=== PATIENT | female | born 1945 | race Caucasian/White ===

== ENCOUNTER 2024-07-14 14:24 | Outpatient (REF) | payer OTHER, SELFPAY ==
--- OUTSIDE RECORDS SUMMARY | 2024-07-14 17:42 | XMS_ITS | Continuity of Care Document ---
Author Organization [place] - [facility], [facility] Address [address] [place] [address] Assessment No assessment recorded. Plan of Treatment Reminders Order Date Submit Date Provider Last Modified By Organization Details Last Modified Time Details Appointments NEW PROBLEM 15 2024 01:30P SUSY RANDHAWA Not available Not available Not available Lab hemoglobi n A1c, QN, blood 2024 025 [facility], [address] [place] [address], [id number], 07/14/2024 14:08:24 urinalysi s complete, reflex culture 2024 025 [facility], [address] [place] [address], [id number], 07/14/2024 14:08:24 vitamin D, 25-hydrox y, total, serum 2024 025 [facility], [address] [place] [address], [id number], 07/14/2024 14:07:08 vitamin B12 + folate, serum or blood 2024 025 [facility], [address] [place] [address], [id number], 07/14/2024 14:07:08 iron + TIBC + ferritin, serum 2024 025 [facility], [address] [place] [address], [id number], 07/14/2024 14:07:08 magnesium , serum or plasma 2024 025 [facility], [address] [place] [address], [id number], 07/14/2024 14:07:08 CMP, serum or plasma 2024 025 [facility], [address] [place] [address], [id number], 07/14/2024 14:07:08 CBC w/ auto diff 2024 025 [facility], [address] [place] [address], [id number], 07/14/2024 14:07:08 TSH + free T4, serum 2024 025 [facility], [address] [place] [address], [id number], 07/14/2024 14:07:08 Referral ophthalmo logist referral 2024 025 paola Pittman MD, [address] [place] [address], [id number], 07/14/2024 14:15:30 Procedures None recorded. Surgeries None recorded. Imaging None recorded. Medication Orders None recorded. Patient TargetsNo targets recorded. Patient InstructionsNo instructions recorded. 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 of visual image needs new eye doctor for routine exam Referring Physician: Radha Chatterjee, Internal Medicine, Encounter Date: 07/14/2024 Problems Name Problem SNOMED Code Status Onset Date Resolution Date Notes Provider Name and Address Organization Details Recorded Time Peptic ulcer with hemorrhag e 80536483 Active 2021 Not Available [facility] 3 16:17:23 Pulmonary embolism 76868319 Active 2021 Not Available [facility] 3 16:17:23 Deep venous thrombosi s 986203635 Active 2021 Not Available [facility] 3 16:17:23 Vitamin D deficienc y 47205950 Active 2021 Not Available [facility] 3 16:17:23 Mood disorder 06956876 Active 2021 Not Available [facility] 3 16:17:23 Hyperlipi demia 33910853 Active 2021 Not Available [facility] 3 16:17:23 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 07219057 Active 2021 Not Available [facility] 3 16:17:24 Hiatal hernia 40369278 Active 2021 Not Available [facility] 3 16:17:24 Esophagea l dysphagia 35924747 Active 2021 Not Available [facility] 3 16:17:23 Cervical radiculop athy 00404684 Active 2021 Not Available [facility] 3 16:17:23 Lumbar spondylol isthesis 169117887603 102 Active 2021 Not Available [facility] 3 16:17:23 Acquired spondylol isthesis of cervical vertebra 713968026192 106 Active 2021 Not Available [facility] 3 16:17:23 Hypothyro idism 36573433 Active 2021 Not Available [facility] 3 16:17:23 Squamous cell carcinoma 404708225 Active 2021 Not Available [facility] 3 16:17:23 Fatigue 30814709 Active 2021 Not Available [facility] 3 16:17:24 Blood coagulati on disorder 85919247 Active 2022 Not Available [facility] 3 16:17:23 Female hirsutism 74026574 Active 2022 Not Available [facility] 3 16:17:24 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 4 14:03:37 Dysuria 15396356 Active 2023 SUSY ALCANTARA [address] [place], [address], [facility] 4 14:03:46 Bilateral shoulder joint pain 284192711991 20552 Active 2023 SUSY ALCANTARA [address] [place] [address], [phone], [facility] 4 11:53:35 Iron deficienc y anemia 98926955 Active 2023 SUSY ALCANTARA [address] [place], [address], [facility] 4 11:59:42 Actinic keratosis 392953017 Active 2023 SUSY ALCANTARA [address] [place] [address], [address], [facility] 4 12:01:42 Bilateral hearing loss 25785522 Active 2023 SUSY ALCANTARA [address] [place] [address], [address], [facility] 4 10:43:51 Pain of left shoulder joint 377265298781 80614 Active 2023 SUSY ALCANTARA [address] [place], [address], [facility] 4 08:56:38 Lumbar radiculop athy 239907926 Active 2023 SUSY ALCANTARA [address] [place] [address], [address], [facility] 4 08:57:16 Increased frequency of urination 514202531 Active 2024 SUSY ALCANTARA [address] [place] [address], [address], [facility] 5 14:06:26 Edema of lower extremity 405557213 Active 2024 SUSY ALCANTARA [address] [place] [address], [phone], [facility] 5 14:10:57 Pain in left foot 003940236097 107 Active 2024 SUSY ALCANTARA [address] [place] [address], , [facility] 5 14:11:32 Blurring of visual image 666435449 Active 2024 SUSY ALCANTARA [address] [place] [address], [address], [facility] 5 14:14:36 Factor V Leiden mutation 252533097 Active 2024 SUSY ALCANTARA [address] [place] [address], [address], [facility] 5 14:18:52 Notes:Some problems listed i n Document: #[id number] could not be added to this patient's chart. Please review this document and add these problems to the patient's chart manually as needed. Problem Notes None recorded. Medical Equipment None Reported. Allergies Allergen ID Allergen Name Allergen Category Reaction Reaction Severity Criticality Documentation Date Start Date Code Code System Note Provider Name and Address Organization Details Recorded Time 3989 Product containin g 3-hydroxy -3-methyl glutaryl- coenzyme A reductase inhibitor (product) medicatio n Not available Not available Not available 03/01/2022 71244 009 SNOMED RADHA CHATTERJEE, PA [address] [place], [place], [address], [facility] 2 10:32:11 6204 hornet venom environme nt Not available Not available Not available 03/01/2022 57296 UNK RADHA CHATTERJEE, PA [address] [place], [place], [address], [facility] 2 10:32:15 6205 honey bee venom medicatio n Not available Not available Not available 03/01/2022 33814 7 RxNorm RADHA CHATTERJEE, SUSY [address] [place], [place], [address], [facility] 2 10:32:24 6206 Imitrex medicatio n Not available Not available Not available 03/01/2022 14376 3 RxNorm RADHA CHATTEJREE, SUSY [address] [place], [place], [address], [facility] 2 10:32:30 7249 escitalop nanette Not available Not available Not available Not available 12/05/2022 01989 8 RxNorm Tali ruiz [facility] 3 10:21:52 7250 fluoxetin e medicatio n Not available Not available Not available 12/05/2022 4493 RxNorm Tali ruiz [facility] 3 10:22:07 Medications Name Sig Start Date Stop Date Status Note LastModified by Organization Details LastModified Time fluoxetin e 40 mg capsule TAKE 1 CAPSULE BY MOUTH EVERY DAY 03/01 completed Not Available Not Available Not Available amoxicill in 500 mg capsule TAKE 2 CAPSULES BY MOUTH IMMEDIAT JUANITA THEN TAKE 1 CAPSULE EVERY 8 HOURS UNTIL FINISHED 04/06 completed Not Available Not Available Not Available clindamyc in HCl 300 mg capsule TAKE 1 CAPSULE BY MOUTH TWICE A DAY 08/06 completed Not Available Not Available Not Available cefpodoxi me 100 mg tablet TAKE 1 TABLET BY MOUTH TWICE A DAY 08/06 completed Not Available Not Available Not Available fluoxetin e 10 mg tablet Take 0.5 tablets every day by oral route. 12/05 completed coming off the medicati on (will do half tab for two weeks)th en half a tab every other day for two weeks Not Available Not Available Not Available acetamino phen 300 mg-codein e 30 mg tablet TAKE 1 TO 2 TABLETS BY MOUTH EVERY 4 HOURS NEEDED FOR PAIN active Not Available Not Available No t Available sulfameth oxazole 800 mg-trimet hoprim 160 mg tablet Take 1 tablet every 12 hours by oral route as directed for 5 days. 08/06 completed Not Available Not Available Not Available tramadol 50 mg tablet TAKE 1 TABLET BY MOUTH THREE TIMES A DAY NEEDED FOR 30 DAYS active Not Available Not Available No t Available levothyro xine 75 mcg tablet TAKE 1 TABLET BY MOUTH EVERY DAY active Not Available Not Available No t Available Vitamin D3 10 mcg (400 unit) tablet Take 1 tablet every day by oral route. 04/06 completed Not Available Not Available Not Available warfarin 2 mg tablet TAKE 1-2 TABLETS (2-4MG) BY MOUTH DAILY NEEDS APPT FOR FURTHER REFILLS 2023 active Not Available Not Available Not Avai lable omeprazol e 20 mg capsule,d elayed release TAKE 1 CAPSULE BY MOUTH EVERY DAY active Not Available Not Available No t Available gabapenti n 100 mg capsule TAKE 1 CAPSULE BY MOUTH 3 TIMES A DAY NEEDED. active Not Available Not Available No t Available epinephri ne 0.3 mg/0.3 mL injection , auto-inje ctor PLEASE SEE ATTACHED FOR DETAILED DIRECTIO NS active Not Available Not Available No t Available Vitamin C 250 mg tablet Take 2 tablets every day by oral route. active Not Available Not Available No t Available morphine 15 mg immediate release tablet TAKE 1 TABLET (15 MG TOTAL) BY MOUTH EVERY 6 (SIX) HOURS NEEDED FOR PAIN *E* 06/05 completed Not Available Not Available Not Available ondansetr on 4 mg disintegr ating tablet TAKE 1 TABLET BY MOUTH EVERY 8 HOURS NEEDED FOR NAUSEA active Not Available Not Available No t Available ezetimibe 10 mg tablet TAKE 1 TABLET BY MOUTH EVERY DAY active Not Available Not Available No t Available escitalop nanette 5 mg tablet TAKE 1 TABLET BY MOUTH EVERY DAY active Not Available Not Available No t Available duloxetin e 20 mg capsule,d elayed release TAKE 1 CAPSULE BY MOUTH EVERY DAY NEEDS APPT FOR FURTHER REFILLS CALL OFFICE active Not Available Not Available No t Available duloxetin e 30 mg capsule,d elayed release TAKE 1 CAPSULE BY MOUTH EVERY DAY 10/31 completed Not Available Not Available Not Available chlorhexi dine gluconate 0.12 % mouthwash RINSE WITH 15 ML TWICE DAILY AFTER BREAKFAS T/BEFORE BEDTIME FOLLOWIN G BRUSHING AND FLOSSING AND SPIT active Not Available Not Available No t Available Feosol 325 mg (65 mg iron) tablet Take 1 tablet every other day by oral route. active Not Available Not Available No t Available Calcium 600 take 1 tablet every other day active Not Available Not Available No t Available Vitals Date Recorded Body weight Heart rate Oxygen saturation Oxygen saturation in Arterial blood by Pulse oximetry Systolic blood pressure Diastolic blood pressure Provider Name and Address Organization Details Last Updated DateTime 5 38015.1 1 g 95 /min 95 % 95 % 112 mm[Hg] 82 mm[Hg] Bertha Goldberg [facility] 5 13:48:48 Social History Question Answer Notes LastModified by Organizat ion Details LastModified Time Tobacco Smoking Status Former Smoker SUSY ALCANTARA [address] [place] [address], [address], [facility] 03/01/2022 10:33:35 What Was The Date Of Your Most Recent Tobacco Screening? 08/07/2023 [email or web address] Information not available 08/07/2023 Do You Or Have You Ever Used Any Other Forms Of Tobacco Or Nicotine? No [email or web address] Information not available 03/01/2022 Sex: Unknown Functional Status None recorded. Mental Status None recorded. Family History Nothing Reported. Medical History No medical history recorded. Gynecological HistoryNo gynecological history recorded. Obstetrics History GPAL:G 0 P 0 0 0 0 Immunizations Vaccine Type Date Status Note Provider Nam e and Address Organization Details Recorded Time influenza, unspecified formulation 2 completed SUSY ALCANTARA [address] [place], [address], [facility] 03/01/2022 10:33:24 influenza, unspecified formulation 3 [facility] 02/17/2023 08:24:36 influenza, unspecified formulation 4 completed Bertha ruiz [facility] 01/03/2024 09:57:51 Past Encounters Encounter ID Performer Location Encounter Start Date Encounter Closed Date Diagnosis/Indication Diagnosis SNOMED-CT Code Diagnosis ICD10 Code Diagnosis Note [id number] SUSY ALCANTARA [facility] [address],[place] [address] 07/14/2024 13:36:55 07/14/2024 14:19:39 Fatigue 48838677 R53.83 recommende d additional lab workcould be related to her depression which was exacerbate d due to her dying Increased frequency of urination 779911147 R35.0 will set up with A1c and urine check Vitamin D deficiency 347 57474 E55.9 needs recheck of her levels Edema of l ower extremity 489281828 R60.0 continue to elevate her feet Pain in left foot 720646 4763 87686 M79.672 start of topical Blurring o f visual image 424928465 H53.8 will set up with new eye doctor Squamous c ell carcinoma 638454668 C80.1 has fu with derm Chronic de ep venous thrombosis of lower extremity 5722264530 40399 I82.503 stable Factor V L eiden mutation 809234686 D68.51 Health Concerns Section Related Observation LastModified by Organization Detai ls LastModified Time None Recorded Concern Status LastModified by Organization Details LastModified Time None Recorded Payers Encounter Date Sequence Insurance Name Policy Number Policy Hwang Covered Member ID Hwang Member ID Guarantor Name 07/14/2024 1 [facility] - MEDICARE PREFERRED (MEDICARE REPLACEMENT HMO) PHUONG Ruffin [id number] 1 Edwin Noa Laly Notes Date Note Type Note Provider Name a nd Address Organization Details Recorded Time 5 text/html c/o urinary issues LE edema: the patient is noticing more swelling in her feetthe patient reports she notices it she gets warm and feels like the feet start to hurt and burnpatient probably has arthritis in her foot, pain with manipulating the foot joint suggestive capzasin, voltaren gel urinary issues: the patient is going to the bathroom more frequentlythe patient has stress incontinence, notices when she sneezesotherwise doesn't notice any other issues with incontinenceno other symptoms the patient has shooting pains from her back into her front, notes she was vacuuming and bending over for a prolonged period of time, probably strained the area since it has since improved skin cancer, lesion of face, has derm fu already will fu with patient after lab work SUSY ALCANTARA [address] [place] [address], [place], [address], [facility] 07/14/2024 14:19:38 OBGyn Episode No OBEpisode recorded.
--- OUTSIDE RECORDS SUMMARY | 2024-07-14 17:42 | XMS_ITS | Data Portability ---
Author Organization [facility], [facility] Address [address] [place] [address] Care Team Providers Care Public Relations Player Name Role Phone DANITA MIRAMONTES Primary Care Provider Unavailabl e Assessment No assessment recorded. Plan of Treatment Reminders Order Date Submit Date Provider Last Modified By Organization Details Last Modified Time Details Appointments None recorded. Lab thyroid stimulatin g hormone (TSH) 2012 013 [facility] (Outpatient), [address] [place], [address], 4 14:05:46 Referral None recorded. Procedures colonoscop y procedure (PROC) - REASON FOR REQUESTING COLONOSCOP Y (choose one):Scree michelle for Colon Cancer
Personal History of Colon Polyps N
Family History of Colon Cancer N

MEDICAL INFORMATIO N1. Any of following conditions ? None 2. A condition requiring prophylaxi s? None
3. Taking medication s? Yes (if yes, provide printed med list)
4. Prior colonoscop y? Yes (if yes, what date?)
5. Any past surgery?<b r />6. Any allergies?
7. Has patient seen GI doctors before? No Yes ( if yes, what DrJalil?)
2013 014 [facility], [address] [place], [address], 4 07:41:19 Surgeries None recorded. Imaging None recorded. Medication Orders oxycodone- acetaminop hen 5 mg-325 mg tablet 2013 014 [id number], [address] [place], [address], 4 11:56:02 amitriptyl ine 25 mg tablet 2013 014 [facility], [address] [place], [address], 4 11:56:02 lorazepam 0.5 mg tablet 2013 014 [facility]per[facility], [address] [place], [address], 4 11:45:08 escitalopr am 20 mg tablet 2013 014 [facility], [address] [place], [address], 4 09:40:32 Patient TargetsNo targets recorded. Patient Instructions Encounter Date Encounter Id Patient Instructions Last Modified By Organization Details Last Modified Time 03/17/2013 [id number] Call? ? ? at [phone] to make an appointment. melissa Not available 03/17/2013 10:18:05 04/08/2013 [id number] START SEEING THE THERAPIST THAT YOU LIKED. LOOK INTO TRYING NEW ACTIVITIES LIKE [employer], A BOOK CLUB, ETC. START GOING OUT TO SEE FRIENDS. INCREASE YOUR ESCITALOPRAM TO 20MG A DAY. GO FOR THE THYROID LAB DRAW TODAY. melissa Not available 04/08/2013 11:51:14 06/16/2013 [id number] advance directives: care instructions tsuddaby Not available 06/16/2013 11:58:54 preventing falls : care instructions tsuddaby Not available 06/16/2013 11:58:54 hearing loss: care instructions tsuddaby Not available 06/16/2013 11:58:54 well visit, over 65: care instructions tsuddaby Not available 06/16/2013 11:58:54 My Health To Do List As we discussed and agreed upon at your visit please work on the following: STOP CALCIUM SUPPLEMENTS AND GET 2-3 SERVINGS OF DAIRY A DAY. TAKE VITAMIN D 1000 IU DAILY. CALL YOUR INSURANCE AND ASK IF YOU CAN GET ADACEL AND ZOSTAVAX DIRECTLY FROM US, OR IF YOU HAVE TO GO THROUGH THE PHARMACY. [email or web address] Not available 06/16/2013 11:44:41 Reason for Referral None Reported. Results Created Date Observation Date Name Description Value Unit Range Abnormal Flag Note LastModifiedBy Organization Detail LastModifiedTime 11/29/19 13 11/28/2012 lipid panel cholesterol 296 mg/dL 0-240 high Not Available [facility] (Outpatient) [address] [place], [address], 11/28/2012 13:09:56 11/29/19 13 11/28/2012 lipid panel triglyceride s 72 mg/dL 30-160 Not Available [facility] (Outpatient) [address] [place] [address], [address], 11/28/2012 13:09:56 11/29/19 13 11/28/2012 lipid panel HDL cholesterol 99 mg/dL inter preta tion: risk level femal es decre ased >55mg /dL avera ge 50-55 mg/dL incre ased <50 mg/dL Not Available [facility] (Outpatient) [address] [place], [address], 11/28/2012 13:09:56 11/29/19 13 11/28/2012 lipid panel LDL cholesterol 183 mg/dL inter preta tion: fina able level : <130 borde rline high: 130 - 159 high level : >160 Not Available [facility] (Outpatient) [address] [place], [address], 11/28/2012 13:09:56 11/29/19 13 11/28/2012 lipid panel chol/HDL risk fact 2.99 3.27-4 .44 low Not Available [facility] (Outpatient) [address] [place], [address], 11/28/2012 13:09:56 11/29/19 13 11/28/2012 hepat ic funct ion panel , serum alkaline phosphatase 51 U/L 39-117 Not Available [facility] (Outpatient) [address] [place], [address], 11/28/2012 13:09:57 11/29/19 13 11/28/2012 hepat ic funct ion panel , serum total bilirubin 0.4 mg/dL 0.0-1. 5 Not Available [facility] (Outpatient) [address] [place], [address], 11/28/2012 13:09:57 11/29/19 13 11/28/2012 hepat ic funct ion panel , serum bilirubin direct <0.2 mg/dL 0.0-0. 3 Not Available [facility] (Outpatient) [address] [place], [address], 11/28/2012 13:09:57 11/29/19 13 11/28/2012 hepat ic funct ion panel , serum bilirubin indirect see below mg/dL not able to calcu late. Not Available [facility] (Outpatient) [address] [place], [address], 11/28/2012 13:09:57 11/29/19 13 11/28/2012 hepat ic funct ion panel , serum AST (SGOT) 28 U/L 0-37 Not Available [facility] (Outpatient) [address] [place], [address], 11/28/2012 13:09:57 11/29/19 13 11/28/2012 hepat ic funct ion panel , serum ALT (SGPT) 21 U/L 0-40 Not Available [facility] (Outpatient) [address] [place], [address], 11/28/2012 13:09:57 11/29/19 13 11/28/2012 hepat ic funct ion panel , serum total protein 6.5 g/dL 6.5-8. 0 Not Available [facility] (Outpatient) [address] [place], [address], 11/28/2012 13:09:57 11/29/19 13 11/28/2012 hepat ic funct ion panel , serum albumin 4.4 g/dL 3.9-4. 8 Not Available [facility] (Outpatient) [address] [place], [address], 11/28/2012 13:09:57 11/29/19 13 11/28/2012 hepat ic funct ion panel , serum globulin 2.1 gm/dL 1.0-4. 8 Not Available [facility] (Outpatient) [address] [place], [address], 11/28/2012 13:09:57 11/29/19 13 11/28/2012 hepat ic funct ion panel , serum A/G ratio 2.1 gm/dL 1.0-4. 8 Not Available [facility] (Outpatient) [address] [place], [address], 11/28/2012 13:09:57 11/29/19 13 11/28/2012 gluco se glucose 106 mg/dL 70-99 high Not Available [facility] (Outpatient) [address] [place] [address], [address], 11/28/2012 13:09:58 11/29/19 13 11/28/2012 vitam in B12 vitamin B12 1050 pg/mL 243-89 4 high Not Available [facility] (Outpatient) [address] [place], [address], 11/28/2012 13:22:42 11/29/19 13 11/28/2012 folat e folate >20.0 NG/mL 4.2-19 .9 high Not Available [facility] (Outpatient) [address] [place] [address], [address], 11/28/2012 13:22:42 11/29/19 13 12/03/2012 methy lmalo celia acid, serum methylmaloni c acid, qn, 0.17 nmol/ mL <=0.40 test perfo rmed by: [facility] [place] [facility] [address] [place] [address] labor atory direc tor: deonna malin III, M.D. Not Available [facility] (Outpatient) [address] [place] [address], [address], 12/03/2012 11:34:09 11/29/19 13 12/03/2012 homoc ystei ne homocysteine , total 9 mcmol /L refer ence range : <=13 (fast ing) test perfo rmed by: [facility] [place] [facility] [address], [place] [address] labor atory direc tor: deonna malin III, M.D. Not Available [facility] (Outpatient) [address] [place] [address], [address], 12/03/2012 11:34:10 11/29/19 13 12/03/2012 eryth ropoi etin erythropoiet in, S 11.9 mIU/m L refer ence range : 2.6 - 18.5 test perfo rmed by: [facility] [place] [address] [facility], [place] [address] labor atory dire tor: ajit akhtar, pH.D. Not Available [facility] (Outpatient) [address] [place] [address], [address], 12/03/2012 11:34:12 04/08/19 14 04/08/2013 thyro id stimu latin g hormo ne (TSH) TSH 3.550 mU/L 0.270- 4.20 Not Available [facility] (Outpatient) [address] [place] [address], [address], 04/08/2013 14:05:45 11/28/19 13 11/14/2012 imagi ng/di agnos tic resul t No observ ation record ed. BARCODE Not Available 2012 18:12:49 Result Notes None recorded. Problems Name Problem SNOMED Code Status Onset Date Resolution Date Notes Provider Name and Address Organization Details Recorded Time Mixed hyperlipidem ia 616723425 Active Keshia Trungkentrell null, [facility] 4 09:46:13 Hypothyroidi sm 49574150 Active 05/04/13 No S/O per YP, managed by Dr. 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 Procedures Surgical History Date Name Laterality Status Provider Name and Address Organization Details Recorded Time 06/17/19 14 Medicare Wellness Visit completed Danita Miramontes MD [address] [place], [address], [facility] 06/16/2013 11:31:48 07/30/19 13 Treatment and Advice completed Ne Rowe Ms, PT [address] [place], [address], [facility] 07/29/2012 11:48:33 07/23/19 13 Treatment and Advice completed Ne Rowe Ms, PT [address] [place], [address], [facility] 07/22/2012 09:32:05 07/16/19 13 Treatment and Advice completed Ne Rowe Ms, PT [address] [place], [address], [facility] 07/15/2012 16:21:43 04/09/19 13 Medicare Wellness Visit completed Sunday Gupta LPN [facility] 04/09/2012 08:34:54 07/04/19 12 Smoking cessation counseling completed Latasha Baca CMA [facility] 07/04/2011 13:26:38 04/20/19 12 Medicare Wellness Visit completed Susan Kaminski MA [facility] 04/20/2011 10:09:43 Appendectomy completed Danita Miramontes MD [address] [place] [address], [address], [facility] 04/09/2012 09:24:07 Imaging Results Imaging Date Name Status LastModified by Organiz ation Details LastModified Time 11/14/2012 imaging/diag nostic result completed BARCODE Information not available 11/27/2012 18:12:49 Procedure Notes None recorded. Medical Equipment None Reported. Allergies Allergen ID Allergen Name Allergen Category Reaction Reaction Severity Criticality Documentation Date Start Date Code Code System Note Provider Name and Address Organization Details Recorded Time 304316 wasp venoms environme nt Not available Not available Not available 09/01/2013 16381 RxNorm Catherine De La Torre LPN [facility], [facility] 4 12:58:33 70496 Lipitor medicatio n Not available Not available Not available 04/20/2011 91016 5 RxNorm muscl e pain Danita Miramontes MD [address] [place] [address], [address], [facility] 2 10:54:15 Medications Name Sig Start Date Stop Date Status Note LastModified by Organization Details LastModified Time levothyro xine 137 mcg tablet Take 1 tablet every day by oral route. active Not Available Not Available No t Available amitripty line 75 mg tablet TAKE ONE TABLET(S ) EVERY DAY active Not Available Not Available No t Available ofloxacin 0.3 % eye drops active Not Available Not Available Not Available meloxicam 15 mg tablet active Not Available Not Available Not Available Niaspan 500 mg tablet,ex tended release Take 3 tablets every day by oral route. 2012 active Not Available Not Available Not Avai lable levothyro xine 100 mcg tablet TAKE ONE TABLET(S ) EVERY DAY active Not Available Not Available No t Available oxycodone -acetamin ophen 5 mg-325 mg tablet Take 1 TABLET EVERY 6 HOURS by oral route prn severe headache active Not Available Not Available No t Available levothyro xine 88 mcg tablet active Not Available Not Available Not Available amitripty line 25 mg tablet Take 1 tablet every day by oral route at bedtime. active Not Available Not Available No t Available prednisol one acetate 1 % eye drops,saumya pension active Not Available Not Available Not Available lorazepam 0.5 mg tablet 1 tab po 3x/d prn panic, max 3 doses a day active Not Available Not Available No t Available levothyro xine 125 mcg tablet Take 1 tablet every day by oral route. active Not Available Not Available No t Available levothyro xine 150 mcg tablet TAKE ONE TABLET(S ) EVERY DAY active decrease d Not Available Not Available Not Available niacin 500 mg tablet Take 2 tablets every day by oral route. active Not Available Not Available No t Available hydrocodo ne 5 mg-acetam inophen 500 mg tablet Take by oral route for 5 days. 09/14 completed Not Available Not Available Not Available escitalop nanette 10 mg tablet TAKE ONE TABLET(S ) EVERY DAY active Not Available Not Available No t Available escitalop nanette 20 mg tablet TAKE ONE TABLET(S ) BY MOUTH EVERY DAY active Not Available Not Available No t Available Naprosyn 2 tabs 220mg active Not Available Not Available No t Available Aspir-81 2 tabs po hs active Not Available Not Available No t Available levothyro xine 125 mcg capsule Take 1 capsule every day by oral route for 30 days. active Not Available Not Available No t Available EpiPen 2-Mateo 0.3 mg/0.3 mL injection , auto-inje ctor Take 1 auto by injectio n route. active Not Available Not Available No t Available Ilevro 0.3 % eye drops,saumya pension active Not Available Not Available Not Available Vitals Date Recorded Body weight Heart rate Body mass index (BMI) Body height Systolic blood pressure Diastolic blood pressure Provider Name and Address Organization Details Last Updated DateTime 3 19286.7 93750 g 80 /min 27 kg/m2 162.56 cm 122 mm[Hg] 82 mm[Hg] Sharri Willis RN [facility] 3 09:58:26 Date Recorded Body weight Body height Body mass index (BMI) Heart rate Systolic blood pressure Diastolic blood pressure Provider Name and Address Organization Details Last Updated DateTime 4 10013.8 25769 g 162.56 cm 27.7 kg/m2 78 /min 112 mm[Hg] 64 mm[Hg] Sharri Willis RN [facility] 4 09:15:30 Date Recorded Body height Body mass index (BMI) Body weight Heart rate Systolic blood pressure Diastolic blood pressure Provider Name and Address Organization Details Last Updated DateTime 4 162.56 cm 28.5 kg/m2 36508.6 56085 g 80 /min 140 mm[Hg] 82 mm[Hg] Sharri Willis RN [facility] 4 11:02:53 Date Recorded Systolic blood pressure Diastolic blood pressure Provider Name and Address Organization Details Last Updated DateTime 06/16/2013 138 mm[Hg] 76 mm[Hg] Danita Miramontes MD [address] [place] [address], [address], [facility] 06/18/2013 15:54:44 Date Recorded Body weight Body mass index (BMI) Body height Systolic blood pressure Diastolic blood pressure Provider Name and Address Organization Details Last Updated DateTime 11/07/2013 55279.81 735 g 26.6 kg/m2 162.56 cm 130 mm[Hg] 70 mm[Hg] Darien Méndez [facility] 4 11:30:56 Social History Question Answer Notes LastModified by Organizat ion Details LastModified Time Tobacco Smoking Status Former Smoker age 20yo, quit 2011 Roque ruiz, [facility] 12/18/2011 10:10:46 Do You Have An Advance Directive? No Information not available 04/20/2011 What Is Your Level Of Alcohol Consumption? Occasional Information not available 06/16/2013 What Is Your Occupation? Retired From [email or web address] Information not available 04/20/2011 CSRP - Narcotics Yes 06/27/11-DC Lorazepam, Group 2 [email or web address] Information not available 06/27/2011 CSRP Contract Signed And Discussed Yes 05/29/11-DC Information not available 06/01/2011 Patient Has Health Care Proxy Signed And In Chart No Information not available 04/20/2011 Marital Status Information not available 04/20/2011 How Many Children Do You Have? 1 Dianna (she Is Learning Disabled And Lives W/ Them). Taylor Is A Step-daughte r Information not available 04/20/2011 Sex: Unknown Functional Status None recorded. Mental Status None recorded. Family History Relationship Description Onset Age of this Age Resolved Age Notes LastModified by Organization Details LastModified Time Mother Cerebrovascu lar accident 75 86 yperry Not available 11:21:12 Father Malignant neoplastic disease 68 uncert ain type asbest os exposu re yperry Not available 06/16/2013 11:21:12 Medical History Condition Response HEMATOLOGIC Y Hyperlipidemia Y Hypothyroid Y Anxiety Y MUSCULOSKELETAL Y Migraine Headaches Y Gynecological HistoryNo gynecological history recorded. Obstetrics History GPAL:G 0 P 0 0 0 0 Immunizations Vaccine Type Date Status Note Provider Nam e and Address Organization Details Recorded Time Influenza, split virus, trivalent, preservative 2 completed Not Available [facility] 04/18/2019 02:25:37 pneumococcal polysaccharide PPV23 2 completed Not Available [facility] 04/18/2019 02:14:55 Influenza, split virus, quadrivalent, PF 3 completed Not Available [facility] 04/18/2019 02:18:55 influenza, unspecified formulation 1 completed Catherine De La Torre LPN [facility], [facility] 05/29/2011 11:18:54 Influenza, split virus, trivalent, preservative 4 completed Sharri Willis RN [facility] 01/19/2014 14:42:42 Past Encounters Encounter ID Performer Location Encounter Start Date Encounter Closed Date Diagnosis/Indication Diagnosis SNOMED-CT Code Diagnosis ICD10 Code Diagnosis Note [id number] CHRISTOPHER VILLASEÑOR, OFFICE [address] [place] [id number] 04/20/2011 09:46:07 04/20/2011 11:04:34 [id number] CHARLEEN Cain, OFFICE [address] [place] [phone] 05/29/2011 10:46:45 05/29/2011 11:54:58 [id number] CHARLEEN Cain, OFFICE [address] [place] [address] 07/04/2011 13:17:36 07/04/2011 14:07:35 [id number] MD CHARLEEN Duarte Cain, OFFICE [address] [place] [phone] 08/29/2011 10:21:55 08/29/2011 11:25:58 [id number] , [facility], OFFICE [address] [place] [address] [place] [address] 10/26/2011 11:07:42 10/26/2011 12:44:20 [id number] Danita Miramontes MD , [facility], OFFICE [address] [place] [address] [place] [address] 12/18/2011 09:51:36 12/18/2011 11:29:44 [id number] Danita Miramontes MD , [facility], OFFICE [address] [place] [address] [place] [address] 01/04/2012 09:27:35 01/04/2012 10:38:44 [id number] Danita Miramontes MD , [facility], OFFICE [address] [place] [address] [place] [address] 04/09/2012 08:31:38 04/09/2012 09:36:13 [id number] Jacinto Guy MD , [facility], OFFICE [address] [place] [address], [place] [address] 05/20/2012 10:13:19 05/20/2012 12:46:11 [id number] Michelle Lock MD Radiology , [address] [address] 05/20/2012 11:12:50 05/21/2012 14:09:19 [id number] Michelle Lock MD Radiology , [address] [address] 05/20/2012 12:04:47 05/21/2012 08:21:39 [id number] Pat Stiles , [facility], OFFICE [address] [place] [address] 07/05/2012 11:20:07 07/07/2012 12:16:33 [id number] Josef Stephen MD Radiology , [address] [address] 07/05/2012 11:35:20 07/09/2012 10:58:40 [id number] Josef Stephen MD Radiology , [address] [address] 07/05/2012 12:38:44 07/09/2012 10:58:18 [id number] Dmitri Harkins , [facility], OFFICE [address] [place] [address], [place] [address] 07/08/2012 09:00:35 07/08/2012 11:35:30 [id number] Ne Rowe Ms, PT Physical Therapy, [address] [address] 07/09/2012 14:26:36 07/10/2012 07:54:07 [id number] Ne Rowe Ms, PT Physical Therapy, [address] [address] 07/15/2012 08:59:25 07/15/2012 16:40:18 [id number] Ne Rowe Ms, PT Physical Therapy, [address] [address] 07/22/2012 08:52:49 07/22/2012 09:40:09 [id number] Ne Rowe Ms, PT Physical Therapy, [address] [address] 07/29/2012 10:55:18 07/29/2012 12:23:57 [id number] Danita Miramontes MD , [facility], OFFICE [address] [place] [id number] 09/10/2012 09:50:19 09/10/2012 11:16:43 [id number] [facility], OFFICE [address] [place] [address] 11/14/2012 11:39:53 11/14/2012 13:00:08 Postural dizziness 070295041 advised to hydrate well, go for labs Dizziness and giddiness 268659091 advised to hydrate well, go for labs [id number] Rachael Paul , [facility], OFFICE [address] [place] [id number] 12/12/2012 10:27:17 12/12/2012 11:24:40 Backache 015105381 [id number] Benji Mcghee , [facility], OFFICE [address] [place] [id number] 12/26/2012 07:40:54 12/26/2012 15:07:49 Influenza vaccine needed 6105668711 [id number] [facility], OFFICE [address] [place] [address] 03/17/2013 09:41:22 03/17/2013 10:30:41 Hypothyroidism 26154319 current dose 88mcg since Oct 2012. recheck labs due to weight gain Hip pain 33465433 will s ee physiatris t Generalize d anxiety disorder 01675401 using benzo more recently due to stress but has been using prn in general. cont prn use and will monitor refill frequency. Hypnotic o r anxiolytic dependence, episodic 287864996 [id number] Danita Miramontes MD [facility], OFFICE [address] [place] [address] 04/08/2013 09:01:10 04/08/2013 09:54:03 Recurrent major depression 25351834 Hypothyroidism 56421160 see below Hip pain 69629045 still has not made appt w/ physiatris t. advised to do so [id number] Danita Miramontes MD [facility], OFFICE [address] [place] [address] 06/16/2013 10:33:51 06/16/2013 15:27:59 Adult health examination 425657599 see Risk Assessment and Lifestyle Change Counseling section above Counseling 606549018 Anxiety state 684860570 well controlled Bilateral cataracts [id number] CLEARED FOR SURGERY [id number] [facility], OFFICE [address] [place] [address] 11/07/2013 11:09:50 11/11/2013 11:06:37 Generalized headache 584808420 Patient presents to Urgent Care with generalize d, persistent RESTREPO for the last 4 days. Describes her RESTREPO as 9/10 pain. Abruptly stopped Amitriptyl ine 4 days ago (due to a concern of weight gain). Patient is under increased stress of taking care of an adult daughter with learning disability and elderly . RESTREPO likely due to tension as well as withdrawal of Amitriptyl ine. Advised to resume Amitriptyl ine at a lower dose of 25mg po qhs. Percocet as needed for RESTREPO. Advised to contact her PCP to further discuss about her ongoing psychosoci al issues. Advised to contact the clinic if no improvemen t of her RESTREPO. Spent 25 minutes of face-to-fa ce encounter. Greater than 50% was spent on counseling . Health Concerns Section Related Observation LastModified by Organization Detai ls LastModified Time None Recorded Concern Status LastModified by Organization Details LastModified Time None Recorded Advance Directives Directive N: Payers Encounter Date Sequence Insurance Name Policy Number Policy Hwang Covered Member ID Hwang Member ID Guarantor Name 12/26/2012 1 [facility] - MEDICARE PREFERRED (MEDICARE REPLACEMENT PFFS) PHUONG Ruffin [id number] Ediwn [place] Laly 03/17/2013 1 [facility] - MEDICARE PREFERRED (MEDICARE REPLACEMENT PFFS) PHUONG Pineda Ally [id number] Edwin [place] Laly 04/08/2013 1 [facility] - MEDICARE PREFERRED (MEDICARE REPLACEMENT PFFS) PHUONG Pineda Laly [id number] Edwin [place] Laly 06/16/2013 1 [facility] - MEDICARE PREFERRED (MEDICARE REPLACEMENT PFFS) PHUONG Pineda Laly [id number] Edwin [place] Laly 11/07/2013 1 [facility] - MEDICARE PREFERRED (MEDICARE REPLACEMENT PFFS) PHUONG Ruffin [id number] Edwin [place] Laly Notes Date Note Type Note Provider Name and Address Organization Details Recorded Time 03/17/2013 text/html pt reports significant R hip pain when she wakes up in the morning. Also starting in the L hip. This is chronic. She says PT was not very helpful. She would like to consider an injection. Using benzo prn anxiety. HAs been more stressed recenlty. Eating more lately and less acitve due to hip pain. Is gaining some weight Danita Miramontes MD [address] [place] [address], [id number], [facility] [place] 03[place]17/2013 15:01:52 04/08/2013 text/html more depressed a nd anxious than usual due to stress of having her learning disabled daughter not having a job and relying entirely on her and her other parent. She feels like her sx will not improve unless her daughter becomes motivated and tries harder to get a job and be independent. Her vision is worsening due to cataract. She gets a sensation like someone is pressing on her vocal cord and feels like she has a lump in her throat. She and thinks it is due to anxiety becuase it only happens when she feels upset/anxious. happens about every 2-7 days. . She does not have any hobbies or activities that she enjoys. She spends all her time and energy caring for her dtr and . She liked the therapist upstairs but she feels she cannot afford it. her hair is more dry and brittle. She has gained some weight and is unable to lose it. is taking her thyroid med. hips still bothering her Danita Miramontes MD [address] [place] [address], [id number], [facility] [place] 04/08/2013 11:57:19 06/16/2013 text/html will be having cataract surgery 07/01/13 Danita Miramontes MD [address] [place] [address], [id number], [facility] [place] 06/18/2013 15:54:46 11/07/2013 text/html Patient presents to Urgent Care with 4-day duration of generalized RESTREPO. States headache is persistent. Not improved with Ibuprofen. Took 1/2 tab of old Percocet which was helpful. Was on Amitriptyline 75mg for insomnia, but stopped taking this medication 4 days ago due to perceived concern of weight gain. Also with photophobia. Recent cataract surgery few months ago. Denies any focal weakness, numbness or tingling. Denies any acute change in vision. No scotomata. Increased stress with helping out her disabled daughter (learning disability). Elderly . Feels overwhelmed. Nile Chávez MD [address] [place] [address], [phone], [facility] [place] 11/07/2013 12:45:51 OBGyn Episode No OBEpisode recorded.
--- OUTSIDE RECORDS SUMMARY | 2024-07-14 17:42 | XMS_ITS | Data Portability ---
Author Organization [facility] Home Service Address [address] [place] [address] Assessment Encounter Date Assessment Date Assessment LastModified by Organization Details LastModified Time 04/06/2022 04/06/2022 The patient denies recent falls or recurrent falls. Denies instability, weakness, abnormal gait, or difficulties with movement. The patient wears correct, supportive shoes and is not otherwise severely visually impaired. The patient is full weight bearing and if using the assistance of a cane or walker feels supported and stable with the use of such devices. All medical conditions have been taken into account that may pose a risk for the patient for falls. Home aviva, carpets and/or rugs do not pose a challenge for the patient. The patient has been educated about the use of vitamin D supplementation for bone health and prevention of hypotensive episodes that may increase risk for fall. All question and concerns were answered to the patient's satisfaction. [email or web address] Not available 04/06/2022 11:55:54 07/27/2023 07/27/2023 Patient agreed and verbally consents to this audio and video Telehealth appt via a secure platform [email or web address] Not available 07/27/2023 14:06:53 Plan of Treatment Reminders Order Date Submit Date Provider Last Modified By Organization Details Last Modified Time Details Appointments NEW PROBLEM 15 2024 01:30P M SUSY ALCANTARA Not available Not available Not available Lab hemoglobi n A1c, QN, blood 2024 025 [facility], [address] [place] [address], [place], [address], 07/14/2024 14:08:24 urinalysi s complete, reflex culture 2024 025 [facility], [address] [place] [address], [id number], 07/14/2024 14:08:24 vitamin D, 25-hydrox y, total, serum 2024 [facility], [address] [place] [address], [address], 07/14/2024 14:07:08 vitamin B12 + folate, serum or blood 2024 025 [facility], [address] [place] [address], [address], 07/14/2024 14:07:08 iron + TIBC + ferritin, serum 2024 [facility], [address] [place] [address], [address], 07/14/2024 14:07:08 magnesium , serum or plasma 2024 025 [facility], [address] [place] [address], [address], 07/14/2024 14:07:08 CMP, serum or plasma 2024 025 [facility], [address] [place] [address], [address], 07/14/2024 14:07:08 CBC w/ auto diff 2024 025 [facility], [address] [place] [address], [address], 07/14/2024 14:07:08 TSH + free T4, serum 2024 025 [facility], [address] [place] [address], [address], 07/14/2024 14:07:08 ESR (erythroc yte sedimenta tion rate), blood 2023 [facility], [address] [place] [address], [address], 08/09/2023 12:28:02 C-reactiv e protein, quantitat tez, serum or plasma 2023 024 [facility], [address] [place] [address], [address], 08/07/2023 11:57:31 uric acid, serum or plasma 2023 024 [facility], [address] [place] [address], [address], 08/07/2023 11:57:31 vitamin D, 25-hydrox y, total, serum 2023 024 [facility], [address] [place] [address], [address], 08/07/2023 12:11:05 vitamin B12 + folate, serum or blood 2023 024 [facility], [address] [place] [address], [address], 08/07/2023 12:11:05 iron + TIBC + ferritin, serum 2023 024 [facility], [address] [place] [address], [address], 08/07/2023 12:02:48 CBC w/ auto diff 2023 024 [facility], [address] [place] [address], [address], 08/07/2023 12:02:48 urinalysi s complete, reflex culture 2023 024 [facility] (Outpatient), [address] [place] [address], [address], 07/29/2023 15:11:37 CBC w/ auto diff 2023 024 [facility] (Outpatient), [address] [place] [address], [address], 07/27/2023 14:06:51 CMP, serum or plasma 2023 024 [facility] (Outpatient), [address] [place] [address], [address], 07/29/2023 15:12:54 iron + TIBC + ferritin, serum 2023 024 [facility] (Outpatient), [address] [place] [address], [address], 07/29/2023 15:41:28 PT/INR 2023 024 [facility] (Outpatient), [address] [place] [address], [address], 07/27/2023 14:06:50 lh + FSH, serum 2022 023 [facility], [address] [place] [address], [address], 04/10/2022 15:16:15 prolactin , serum 2022 023 [facility], [address] [place] [address], [address], 04/06/2022 12:15:25 testoster one, free + total, serum 2022 023 [facility], [address] [place] [address], 064[address], 04/16/2022 19:29:17 dhea-sulf ate, serum 2022 023 [facility], [address] [place] [address], 226[address], 04/12/2022 08:26:25 PT/INR 2022 023 [facility], [address] [place] [address], 69[address], 04/06/2022 12:15:26 PT/PTT, plasma 2022 023 [facility], [address] [place] [address], 82219, 04/06/2022 12:15:25 plasminog en activator inhibitor -1 (ronald-1), plasma 2022 023 [facility], [address] [place] [address], [address], 04/06/2022 12:15:26 CBC w/ auto diff 2022 023 [facility], [address] [place] [address], 110[address], 04/10/2022 14:49:21 factor V mutation, blood or tissue 2022 023 [facility], [address] [place] [address], 613[address], 04/13/2022 12:53:06 protein C + protein S, functiona l panel, plasma 2022 023 [facility], [address] [place] [address], 16814, 04/06/2022 12:15:26 CBC w/ auto diff 2021 022 [facility], [address] [place] [address], 45[address], 03/15/2022 05:21:06 iron + TIBC + ferritin, serum 2021 022 [facility], [address] [place] [address], 55710, 03/01/2022 11:35:19 TSH + free T4, serum 2021 [facility], [address] [place] [address], 639[address], 03/15/2022 06:12:18 vitamin D, 25-hydrox y, total, serum 2021 [facility], [address] [place] [address], 95651, 03/01/2022 11:35:19 vitamin B12 + folate, serum or blood 2021 [facility], [address] [place] [address], 78587, 03/15/2022 05:53:24 Referral ophthalmo logist referral 2024 025 [email or web address] Fay Pittman MD, [address] [place], [address], 07/14/2024 14:15:30 dermatolo gist referral 2023 024 [facility], [address] [place] [address], [place], [address], 08/12/2023 09:24:[address] referral 2022 023 [facility], [address] [place], [address], 05/04/2022 13:34:07 endocrine surgery referral 2022 023 [email or web address] 10 Dioni Ojeda MD, [address] [place], [address], 05/04/2022 10:33:04 dermatolo gist referral 2021 022 [facility], [address] [facility], [address] [place], [address], 03/30/2022 08:49:57 Procedures None recorded. Surgeries None recorded. Imaging XR, shoulder, 2 or more view 2023 024 [email or web address] Not available 08/08/2023 09:59:01 XR, cervical spine, 2 or 3 view 2023 024 [email or web address] Not available 08/08/2023 11:46:05 US, duplex, venous, lower extremity - hx of DVT LEs, needs routine check 2022 023 [email or web address] Not available 04/09/2022 09:02:36 Medication Orders levothyro xine 75 mcg tablet 2023 024 [facility]/Pharmacy #[id number], [address] [place], [address], 08/07/2023 11:52:32 Bactrim DS 800 mg-160 mg tablet 2023 024 [email or web address] [facility]/Pharmacy #5, [address] [place], [address], 08/07/2023 11:22:57 Patient TargetsNo targets recorded. Patient InstructionsNo instructions recorded. 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 Referral for A ctinic keratosis possible AK on the for head, non-healing, bleeding lesion, pink in color, irregular borders Referring Physician: Radha Chatterjee Internal [facility], Encounter Date: 08/07/2023 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 [email or web address] [facility] (Scheduling Dept) [address] [place] [address], [address], 02/19/2022 11:07:34 04/20/19 23 04/20/2022 US, devonle x, gonzalo s, lower extre mity No observ ation record ed. [email or web address] [address] [facility] [address], [place], [address], 04/23/2022 15:02:50 05/17/19 23 05/17/2022 CT, face, w/ contr ast No observ ation record ed. [facility] [address] [place] [address], [address], 05/17/2022 08:48:51 07/30/19 24 07/30/2023 CT, abdom en + pelvi s, w/o contr ast No observ ation record ed. [facility] (Emergency Room) [address] [place] [address], [address], 08/07/2023 12:14:49 08/08/19 24 08/07/2023 XR, shoul vivi, 2 or more view No observ ation record ed. [email or web address] [address], [address], 08/09/2023 12:26:41 08/08/19 24 08/07/2023 XR, cervi елена spine , 2 or 3 view No observ ation record ed. [address], [address], 08/09/2023 08:49:53 08/08/19 24 08/07/2023 XR, shoul vivi, 2 or more view No observ ation record ed. [email or web address] [address], [address], 08/09/2023 08:49:53 04/23/19 25 04/22/2024 XR, shoul vivi, 2 or more view No observ ation record ed. [email or web address] [address], [address], 04/24/2024 09:07:25 Result Notes None recorded. Problems Name Problem SNOMED Code Status Onset Date Resolution Date Notes Provider Name and Address Organization Details Recorded Time Peptic ulcer with hemorrhag e 10324039 Active 2021 Not Available [facility] 3 16:17:23 Pulmonary embolism 62555441 Active 2021 Not Available [facility] 3 16:17:23 Deep venous thrombosi s 321582010 Active 2021 Not Available [facility] 3 16:17:23 Vitamin D deficienc y 40003849 Active 2021 Not Available [facility] 3 16:17:23 Mood disorder 04481793 Active 2021 Not Available [facility] 3 16:17:23 Hyperlipi demia 60632167 Active 2021 Not Available [facility] 3 16:17:23 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 78010364 Active 2021 Not Available [facility] 3 16:17:24 Hiatal hernia 04289618 Active 2021 Not Available [facility] 3 16:17:24 Esophagea l dysphagia 75422946 Active 2021 Not Available [facility] 3 16:17:23 Cervical radiculop athy 63662319 Active 2021 Not Available [facility] 3 16:17:23 Lumbar spondylol isthesis 681821173306 102 Active 2021 Not Available [facility] 3 16:17:23 Acquired spondylol isthesis of cervical vertebra 005882157509 106 Active 2021 Not Available [facility] 3 16:17:23 Hypothyro idism 62786433 Active 2021 Not Available [facility] 3 16:17:23 Squamous cell carcinoma 670500864 Active 2021 Not Available [facility] 3 16:17:23 Fatigue 69426337 Active 2021 Not Available [facility] 3 16:17:24 Blood coagulati on disorder 24642911 Active 2022 Not Available [facility] 3 16:17:23 Female hirsutism 12174267 Active 2022 Not Available [facility] 3 16:17:24 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 305168725540 106 Active 2022 Not Available [facility] 3 16:17:23 Presbyopi a 55786054 Active 2022 Not Available [facility] 3 16:17:23 Infection of tooth 926581652 Active 2022 Not Available [facility] 3 16:17:23 Depressiv e disorder 85028137 Active 2022 Not Available [facility] 3 16:17:23 Bee sting-ind uced anaphylax is 169246865 Active 2022 Not Available [facility] 3 16:17:23 Blood in urine 44258673 Active 2023 SUSY ALCANTARA [address] [place], [address], [facility] 4 14:03:37 Dysuria 48224048 Active 2023 SUSY ALCANTARA [address] [place], [address], [facility] 4 14:03:46 Bilateral shoulder joint pain 571105676459 49341 Active 2023 SUSY ALCANTARA [address] [place] [address], [address], [facility] 4 11:53:35 Iron deficienc y anemia 99578895 Active 2023 SUSY ALCANTARA [address] [place] [address], [address], [facility] 4 11:59:42 Actinic keratosis 459021875 Active 2023 SUSY ALCANTARA [address] [place] [address], [address], [facility] 4 12:01:42 Bilateral hearing loss 67999749 Active 2023 SUSY ALCANTARA [address] [place] [address], [address], [facility] 4 10:43:51 Pain of left shoulder joint 785595274377 38783 Active 2023 SUSY ALCANTARA [address] [place] [address], [address], [facility] 4 08:56:38 Lumbar radiculop athy 400817434 Active 2023 SUSY ALCANTARA [address] [place] [address], [address], [facility] 4 08:57:16 Increased frequency of urination 337373207 Active 2024 SUSY ALCANTARA [address] [place] [address], [address], [facility] 5 14:06:26 Edema of lower extremity 481973057 Active 2024 SUSY ALCANTARA [address] [place] [address], [address], [facility] 5 14:10:57 Pain in left foot 982333707043 107 Active 2024 SUSY ALCANTARA [address] [place] [address], [address], [facility] 14:11:32 Blurring of visual image 846010947 Active 2024 SUSY ALCANTARA [address] [place], [address], [facility] 14:14:36 Factor V Leiden mutation 726513295 Active 2024 SUSY ALCANTARA [address] [place], [address], [facility] 14:18:52 Notes:Some problems listed i n Document: #[id number] could not be added to this patient's chart. Please review this document and add these problems to the patient's chart manually as needed. Problem Notes None recorded. Procedures Surgical History None recorded. Imaging Results Imaging Date Name Status LastModified by Organiz ation Details LastModified Time 02/16/2022 FL, modified barium swallow study completed [email or web address] (Scheduling Dept) [address] [place] [address], [address], 02/19/2022 11:07:34 04/20/2022 US, duplex, venous, lower extremity completed [facility] [address], [place], [address], 04/23/2022 15:02:50 05/17/2022 CT, face, w/ contrast completed [email or web address] (Emergency Room) [address] [place] [address], [address], 05/17/2022 08:48:51 07/30/2023 CT, abdomen + pelvis, w/o contrast completed [email or web address] [facility] (Emergency Room) [address] [place] [address], [address], 08/07/2023 12:14:49 08/07/2023 XR, shoulder, 2 or more view completed [email or web address] [address], [address], 08/09/2023 12:26:41 08/07/2023 XR, cervical spine, 2 or 3 view completed [email or web address] [address], [address], 08/09/2023 08:49:53 08/07/2023 XR, shoulder, 2 or more view completed [email or web address] [address], [address], 08/09/2023 08:49:53 04/22/2024 XR, shoulder, 2 or more view completed [email or web address] [address], [address], 04/24/2024 09:07:25 Procedure Notes None recorded. Medical Equipment None Reported. Allergies Allergen ID Allergen Name Allergen Category Reaction Reaction Severity Criticality Documentation Date Start Date Code Code System Note Provider Name and Address Organization Details Recorded Time 7057 Product containin g 3-hydroxy -3-methyl glutaryl- coenzyme A reductase inhibitor (product) medicatio n Not available Not available Not available 03/01/2022 65045 009 SNOMED SUSY ALCANTARA [address] [place], [address], [facility] 2 10:32:11 6204 hornet venom environme nt Not available Not available Not available 03/01/2022 03259 UNK SUSY ALCANTARA [address] [place], [address], [facility] 2 10:32:15 6205 honey bee venom medicatio n Not available Not available Not available 03/01/2022 88464 7 RxNorm SUSY ALCANTARA [address] [place], [address], [facility] 2 10:32:24 6206 Imitrex medicatio n Not available Not available Not available 03/01/2022 11542 3 RxNorm SUSY ALCANTARA [address] [place], [address], [facility] 2 10:32:30 7249 escitalop nanette Not available Not available Not available Not available 12/05/2022 75199 8 Rx[facility] 3 10:21:52 7250 fluoxetin e medicatio n Not available Not available Not available 12/05/2022 4493 RxNorm Tali ruiz [facility] 3 10:22:07 Medications Name Sig [...] and Address Organization Details Last Updated DateTime 2 29794.8 g 60 /min 97 % 97 % 136 mm[Hg] 80 mm[Hg] SUSY ALCANTARA [address] [place], [address] [place] [address] Internal Medicine 2 10:35:33 Date Recorded Body weight Heart rate Oxygen saturation Oxygen saturation in Arterial blood by Pulse oximetry Systolic blood pressure Diastolic blood pressure Provider Name and Address Organization Details Last Updated DateTime 3 57949.0 5 g 64 /min 98 % 98 % 128 mm[Hg] 60 mm[Hg] SUSY ALCANTARA [address] [place], [address], [facility] 3 11:38:45 Date Recorded Body weight Heart rate Oxygen saturation Oxygen saturation in Arterial blood by Pulse oximetry Systolic blood pressure Diastolic blood pressure Provider Name and Address Organization Details Last Updated DateTime 4 78503.5 4 g 85 /min 98 % 98 % 114 mm[Hg] 78 mm[Hg] Bertha Goldberg [facility] 4 11:30:19 Date Recorded Body weight Heart rate Oxygen saturation Oxygen saturation in Arterial blood by Pulse oximetry Systolic blood pressure Diastolic blood pressure Provider Name and Address Organization Details Last Updated DateTime 5 05597.1 1 g 95 /min 95 % 95 % 112 mm[Hg] 82 mm[Hg] Bertha Goldberg [facility] 5 13:48:48 Social History Question Answer Notes LastModified by Organizat ion Details LastModified Time Tobacco Smoking Status Former Smoker SUSY ALCANTARA [address] [place] [address], [address] 03/01/2022 10:33:35 What Was The Date Of [...] unspecified formulation 2 completed SUSY ALCANTARA [address] [place], [address], [facility] 03/01/2022 10:33:24 influenza, unspecified formulation 3 completed Edwin Renee ruiz, [facility] 02/17/2023 08:24:36 influenza, unspecified formulation 4 completed [facility] 01/03/2024 09:57:51 Past Encounters Encounter ID Performer Location Encounter Start Date Encounter Closed Date Diagnosis/Indication Diagnosis SNOMED-CT Code Diagnosis ICD10 Code Diagnosis Note [id number] SUSY ALCANTARA [facility] [address] [facility] [address] 03/01/2022 10:25:46 03/01/2022 11:38:44 Hiatal hernia 96105892 K44.9 large hernia; hiatal hernia with large parts of the fundus of the hernia Esophageal dysphagia 408 49181 R13.19 has f/u on Saturday with Cervical radiculopathy 44752439 M54.12 not significan twill monitor her Acquired spondylolisthesis of cervical vertebra 1935212875 38969 M43.12 noted incidental ly on her barium swallow Hypothyroidism 91352627 E03.8 needs recheck Pulmonary embolism 61612 003 I26.99 currently on warfarindo es have h/x of GI bleeds INR levels Squamous c ell carcinoma 477677297 C80.1 will f/u with dermatolog y Peptic ulc er with hemorrhage 77332103 K25.4 hx of peptic ulcer Mood disorder 80827646 F 30.10 stable Fatigue 52586639 R53.83 will recheck levels [id number] SUSY ALCANTARA [facility] [address] [facility] [address] 04/06/2022 11:29:14 04/06/2022 13:33:19 Blood coagulation disorder 10568653 D68.59 will do work up > could not see the genetics doctor as they stopped taking new patients Female hirsutism 9049055 9 L68.0 will f/u with lab work to determine if it is a hormonal imbalance Chronic de ep venous thrombosis of lower extremity 4732766396 34482 I82.503 will f/u with the DVT to monitor her levels Hypothyroidism 55823031 E03.8 will set up with new endocrinol ogist Mood disorder 32496938 F 30.10 adjusted taper dose, directions in the chart (under medication s)given list of meds with directions Presbyopia 93082563 H52. 4 will set up with new optometris t for routine eye exam and monitoring [id number] SUSY ALCANTARA [facility] [address] [facility],[place] [address] 07/27/2023 14:02:40 07/29/2023 08:15:08 Blood in urine 07178856 R31.0 lab work will be completed on Saturday Dysuria 75078571 R30.0 start short course through the weekend, f/u planned with lab work on Saturday [id number] SUSY ALCANTARA [facility] Internal [facility] [address] [facility],[place] [address] 08/07/2023 11:10:52 08/07/2023 13:30:56 Depression screening 462668228 Z13.31 stable Hypothyroidism 37398619 E03.8 seeing Nicasionee ds refill Bilateral shoulder joint pain 2344837527 6913611 M25.511 agreed to lab work and XR Iron defic iency anemia 20174731 D50.9 recheck levels, suggested stomach ease version due to the constipati on Actinic keratosis 848322 007 L57.0 agreed to derm f/u Cervical radiculopathy 83544257 M54.12 not significan twill monitor her Fatigue 95397673 R53.83 stable [id number] SUSY ALCANTARA [facility] Internal [facility] [address] [facility] [address] 07/14/2024 13:36:55 07/14/2024 14:19:39 Fatigue 77557958 R53.83 recommende d additional lab workcould be related to her depression which was exacerbate d due to her dying Increased frequency of urination 144270629 R35.0 will set up with A1c and urine check Vitamin D deficiency 347 18895 E55.9 needs recheck of her levels Edema of l ower extremity 962053222 R60.0 continue to elevate her feet Pain in left foot 982280 3773 94909 M79.672 start of topical Blurring o f visual image 861404419 H53.8 will set up with new eye doctor Squamous c ell carcinoma 017347055 C80.1 has fu with derm Chronic de ep venous thrombosis of lower extremity 2831018868 11638 I82.503 stable Factor V L eiden mutation 609430036 D68.51 Health Concerns Section Related Observation LastModified by Organization Detai ls LastModified Time None Recorded Concern Status LastModified by Organization Details LastModified Time None Recorded Advance Directives Directive None Recorded Payers Encounter Date Sequence Insurance Name Policy Number Policy Hwang Covered Member ID Hwang Member ID Guarantor Name 03/01/2022 1 [facility] - MEDICARE PREFERRED (MEDICARE REPLACEMENT HMO) SARAHANAHI Ruffin [id number] Edwin Ruffin 04/06/2022 1 [facility] - MEDICARE PREFERRED (MEDICARE REPLACEMENT HMO) SARAHANAHI Ruffin [id number] Edwin Latham Laly 07/27/2023 1 [facility] - MEDICARE PREFERRED (MEDICARE REPLACEMENT HMO) SARAHANAHI Ruffin [id number] 1 Edwin Latham Laly 08/07/2023 1 [facility] - MEDICARE PREFERRED (MEDICARE REPLACEMENT HMO) SARAHANAHI Ruffin [id number] 1 Edwin Latham Laly 07/14/2024 1 [facility] - MEDICARE PREFERRED (MEDICARE REPLACEMENT HMO) PHUONG Edwin Ruffin [id number] 1 Edwin S Laly Notes Date Note Type Note Provider Name and Address Organization Details Recorded Time 03/01/20 22 text/htm l NPV: PMH:hiatal hernia: discussed results with the patient and her daughter esophageal dysphagia: related to the hiatal hernia spondylolisthesis: on barium swallow, incidental finding on scan; levels C4-C5 and C5 -C6 (retro-sponylolisthesis) hypothyroidism: needs TSH drawn, no recent draw PE: on warfarin currentlyneed to monitor her for potential bleeds given her h/x vitamin D: stable at recheck with CDHdaughter brought levels discussed all patient concerns today with daughter and patientdaughter had a binder with all the information mood disorder: decreasing her medication headaches: increase to tylenol extra strength instead of regular releasethe patient can also try the gel capsules for better control of the headachescan be used every 4 to 6 hours; 2 caps the patient can use levothyroxine in the AMtake omeprazole later on, like an hour away for the thyroid med vitamins in the morning [address] [place], [id number], [facility] 03/01/2022 11:35:24 04/06/19 23 text/htm l 1 mo f/u Dr. Booth for her dental workDr. Chamorro for teeth extraction > the patient reports that she needs pre-opwas on clindamycin prior to procedureno serious reaction, did well on itjust an FYI to be aware for PCP Blood coagulation: will do work up for patient since genetics doctor (through [facility]) is no longer taking patientsgiven to patient after appointment female hirsutism: will do work up for hormonal imbalance that may be contributingto the increase in hair growthwi/l f/u with patient when the results come back medication adjusted in her chart (had to put vit D in the note section, couldn't pull down without calcium attached)calcium is every other day, keep it consistent start on probiotic every day for gut health, glenda on antibiotics the patient is having issues with swelling under the eye (right side)tends to sleep on her right side due to arthritis in her left shoulderuse warm compresses in the morning and massage the area for about 1 to 3 minutes DVT: will monitor LE's with US venous to make sure she is not producing any more clots, even on the warfarin (has varicose veins, bilateral) will refer to a second opinion with Dr. Ojeda as an endocrinologistreferral sent needs referral for eye physicianset up with Dr. Rosa in [place], [place] SUSY ALC[address] [facility], [place], [phone], [facility] 04/06/2022 12:48:43 07/27/19 24 text/htm l c/o hematuria The patient is participating in this appointment via telemedicine communication with a phone call/video calling service (Doxy)The patient consents to use of these platforms in place of an in-person appointment due to either sick symptoms the patient is presenting with or current office closure due to COVID exposure in order to keep our office staff and patients safe The patient's daughter called service around 1:01 pm 07/27/23noted her mother (on [facility] and is patient's CT) noted two episodes of gross hematuria when urinating todaypatient states she had had one or two episodes, much milder, for the past two days denies pain with urination, frequency, back pain, kidney pain, flank pain, fever, chills, abdominal pain, n/v/d, fatigue, malaise, weakness, AMS, headache, pelvic pain daughter noted she has a strong odor to her urine patient does admit to poor hydrationpossible UTI in the setting of poor hydration or GOYO in the setting of poor hydrationstone less likely given lack of discomfort, fever, chillskidney infection less likely in the lack of fever, AMS, chills, malaise patient and mother agreed to start short course bactrim over the weekend and fu with lab work and urine sample on Saturday, orders placed patient has no alarm symptoms suggestive of more serious problem that would require ER evaluation at this time but patient and patient's daughter are aware of what symptoms to monitor for that would require immediate evaulation in an emergency setting otherwise plan in place, will fu with patient on Saturday SUSY ALCANTARA [address] [place] [address], [place], [phone], [facility] 07/27/2023 14:15:07 08/07/19 24 text/htm l ER F/U depression screening: stable constipation: has been to and from the ER due to constipationthe patient reports she is doing better with the miralax and colacecan cut back on the miralax the patient is having bilateral shoulder pain for awhileDr. Marcel suggested seeing a rheum, did not run lab work, would like lab work first and some new imaging, she has hx of calcific tendinitiswill set up with lab work she was getting cortisone injections twice per year she is reporting fatigue, could be combination of the pain, stressrecently lost her and has been dealing issues regarding that which has been stressful the patient reports that she has a lesion, non healing on her foreheadneeds new derm referral anyways needs refill of her medication cutting down of the anti-depressants, she would like to get off themgiven taper instructions will fu with patient after work up [address] [place], [id number], [facility] 08/07/2023 12:16:09 07/15/19 25 text/htm l c/o urinary issues LE edema: the patient [...] with patient after lab work [address] [place], [phone], [facility] 07/14/2024 14:19:38 OBGyn Episode No OBEpisode recorded.
[2024-07-14 18:22] LABS: MANUAL DIFF FLAG NO
[2024-07-14 18:33] LABS: Basophils Percent Auto 0.9 % (0-2); Eosinophils Absolute Auto 0.1 X10*3/uL (0.0-0.4); Eosinophils Percent Auto 2.4 % (0-4); Hemoglobin 14.1 g/dl (12.0-16.0); Imm Gran Abs Auto 0.01 X10*3/uL (0.00-0.03); Imm Gran Pct Auto 0.2 % (0.0-0.4); Lymphocytes Absolute Auto 1.3 X10*3/uL (1.2-4.9); Lymphocytes Percent Auto 28.6 % (20-40); Mean Corpuscular Hemoglobin 28.3 pg (27.0-33.0); Mean Corpuscular Volume 88.2 fL (80.0-98.0); Mean Platelet Volume 11.1 fL (9.4-12.3); Monocytes Absolute Auto 0.5 X10*3/uL (0.1-1.2); Monocytes Percent Auto 9.8 % (2-11); Neutrophils Absolute Auto 2.7 x10*3/uL (2.0-8.3); Neutrophils Percent Auto 58.1 % (45-73); Platelet Count 229 X10*3/uL (160-400); Red Blood Count 4.99 X10*6/uL (4.20-5.50); Red Cell Distribution Width 15.2 % (11.0-16.0); White Blood Count 4.6 X10*3/uL (4.8-10.8)
[2024-07-14 18:59] LABS: Alanine Aminotransferase 22 U/L (0-31); Albumin Level 4.1 g/dL (3.5-5.0); Alkaline Phosphatase 47 U/L (39-117); Anion Gap 13 (12-20); Aspartate Amino Transferase 26 U/L (5-31); Bilirubin Total 0.6 mg/dL (0.0-1.0); Blood Urea Nitrogen 20 mg/dL (9-16); Calcium 9.7 mg/dL (8.4-10.2); Carbon Dioxide 26 mmol/L (22-29); Chloride 107 mmol/L (96-108); Estimated Glomerular Filt Rate > 60; Glucose Random 89 mg/dL (60-115); Iron 84 mcg/dL (30-160); Magnesium 2.1 mg/dL (1.6-2.6); Percent Iron Saturation 24 % (15-50); Potassium 4.2 mmol/L (3.3-5.1); Sodium 142 mmol/L (135-145); Total Iron Binding Capacity 351 mcg/dL (228-428); Total Protein 6.8 g/dL (6.5-8.0); Unsaturated Iron Binding 267 ug/dL
[2024-07-14 19:14] LABS: Folate 9.9 ng/mL (> or = 4.0); Free T4 (Free Thyroxine) 1.22 ng/dL (0.71-1.85); Thyroid Stimulating Hormone 1.52 uIU/mL (0.32-4.0); Vitamin B12 446 pg/mL (200-900); Vitamin D 25-OH Total 56.1 ng/mL (>30)
[2024-07-15 07:12] LABS: Estimated Average Glucose 117 mg/dL; Hemoglobin A1C 144.5653 umol/L; Hemoglobin A1c % 5.7 % (<6.0); Total Hemoglobin (HGBA1C) 3696.9197 umol/L
== END 2024-07-14 14:25 | disposition home or self-care (01) ==
LOC: HO.MANLDS 14:24
PROVIDERS: Visit Provider Physician Assistant
DX: R53.83 Other fatigue (principal); R35.0 Frequency of micturition; Z13.1 Encounter for screening for diabetes mellitus
CPT/HCPCS: 36415; 80053; 82306; 82607; 82746; 83036; 83540; 83735; 84439; 84443; 85025

== ENCOUNTER 2024-07-15 15:41 | Outpatient (REF) | payer OTHER, SELFPAY ==
--- OUTSIDE RECORDS SUMMARY | 2024-07-15 18:05 | XMS_ITS | Data Portability ---
Author Organization [facility], [facility] Address [address] [place] [address] Care Team Providers Care Casino Operations Supervisor Name Role Phone DANITA MIRAMONTES Primary Care Provider Unavailabl e Assessment No assessment recorded. Plan of Treatment Reminders Order Date Submit Date Provider Last Modified By Organization Details Last Modified Time Details Appointments None recorded. Lab thyroid stimulatin g hormone (TSH) 2012 013 [facility] (Out[facility]), [address] [place], [address], 4 14:05:46 Referral None recorded. Procedures colonoscop [...] ( if yes, what DrJalil?)
2013 014 [facility], [address] [place], [address], 4 07:41:19 Surgeries None recorded. Imaging None recorded. Medication Orders oxycodone- acetaminop hen 5 mg-325 mg tablet 2013 014 [facility], [address] [place], [address], 4 11:56:02 amitriptyl ine 25 mg tablet 2013 014 [facility], [address] [place], [address], 4 11:56:02 lorazepam 0.5 mg tablet 2013 014 [facility], [address] [place], [address], 4 11:45:08 escitalopr am 20 mg tablet 2013 014 [facility], [address] [place], [address], 4 09:40:32 Patient TargetsNo targets recorded. Patient Instructions Encounter Date Encounter Id Patient Instructions Last Modified By Organization Details Last Modified Time 03/17/2013 [id number] Call? ? ? at [phone] to make an appointment. melissa Not available 03/17/2013 10:18:05 04/08/2013 [id number] START SEEING THE THERAPIST THAT YOU LIKED. LOOK INTO TRYING NEW ACTIVITIES LIKE [employer], A BOOK CLUB, ETC. START GOING OUT TO SEE FRIENDS. INCREASE YOUR ESCITALOPRAM TO 20MG A DAY. GO FOR THE THYROID LAB DRAW TODAY. melissa Not available 04/08/2013 11:51:14 06/16/2013 [id number] advance directives: care instructions [email or web address] Not available [...] cholesterol 296 mg/dL 0-240 high Not Available [facility] (Out[facility]) [address] [place], [address], 11/28/2012 13:09:56 11/29/19 13 11/28/2012 lipid panel triglyceride s 72 mg/dL 30-160 Not Available [facility] ([facility]) [address] [place] [address], [address], 11/28/2012 13:09:56 11/29/19 13 11/28/2012 lipid panel HDL cholesterol 99 mg/dL inter preta tion: risk level femal es decre ased >55mg /dL avera ge 50-55 mg/dL incre ased <50 mg/dL Not Available [facility] ([facility]) [address] [place], [address], 11/28/2012 13:09:56 11/29/19 13 11/28/2012 lipid panel LDL cholesterol 183 mg/dL inter preta tion: fina able level : <130 borde rline high: 130 - 159 high level : >160 Not Available [facility] (Out[facility]) [address] [place], [address], 11/28/2012 13:09:56 11/29/19 13 11/28/2012 lipid panel chol/HDL risk fact 2.99 3.27-4 .44 low Not Available [facility] (Out[facility]) [address] [place], [address], 11/28/2012 13:09:56 11/29/19 13 11/28/2012 hepat ic funct ion panel , serum alkaline phosphatase 51 U/L 39-117 Not Available [facility] (Outpatient) [address] [place], [address], 11/28/2012 13:09:57 11/29/19 13 11/28/2012 hepat ic funct ion panel , serum total bilirubin 0.4 mg/dL 0.0-1. 5 Not Available [facility] ([facility]) [address] [place], [address], 11/28/2012 13:09:57 11/29/19 13 11/28/2012 hepat ic funct ion panel , serum bilirubin direct <0.2 mg/dL 0.0-0. 3 Not Available [facility] ([facility]) [address] [place], [address], 11/28/2012 13:09:57 11/29/19 13 11/28/2012 hepat ic funct ion panel , serum bilirubin indirect see below mg/dL not able to calcu late. Not Available [facility] ([facility]) [address] [place], [address], 11/28/2012 13:09:57 11/29/19 13 11/28/2012 hepat ic funct ion panel , serum AST (SGOT) 28 U/L 0-37 Not Available [facility] ([facility]) [address] [place], [address], 11/28/2012 13:09:57 11/29/19 13 11/28/2012 hepat ic funct ion panel , serum ALT (SGPT) 21 U/L 0-40 Not Available [facility] (Out[facility]) [address] [place], [address], 11/28/2012 13:09:57 11/29/19 13 11/28/2012 hepat ic funct ion panel , serum total protein 6.5 g/dL 6.5-8. 0 Not Available [facility] ([facility]) [address] [place], [address], 11/28/2012 13:09:57 11/29/19 13 11/28/2012 hepat ic funct ion panel , serum albumin 4.4 g/dL 3.9-4. 8 Not Available [facility] ([facility]) [address] [place], [address], 11/28/2012 13:09:57 11/29/19 13 11/28/2012 hepat ic funct ion panel , serum globulin 2.1 gm/dL 1.0-4. 8 Not Available [facility] (Out[facility]) [address] [place], [address], 11/28/2012 13:09:57 11/29/19 13 11/28/2012 hepat ic funct ion panel , serum A/G ratio 2.1 gm/dL 1.0-4. 8 Not Available [facility] ([facility]) [address] [place], [address], 11/28/2012 13:09:57 11/29/19 13 11/28/2012 gluco se glucose 106 mg/dL 70-99 high Not Available [facility] ([facility]) [address] [place] [address], [address], 11/28/2012 13:09:58 11/29/19 13 11/28/2012 vitam in B12 vitamin B12 1050 pg/mL 243-89 4 high Not Available [facility] ([facility]) [address] [place], [address], 11/28/2012 13:22:42 11/29/19 13 11/28/2012 folat e folate >20.0 NG/mL 4.2-19 .9 high Not Available [facility]) [address] [place] [address], [address], 11/28/2012 13:22:42 11/29/19 13 12/03/2012 methy lmalo celia acid, serum methylmaloni c acid, qn, 0.17 nmol/ mL <=0.40 test perfo rmed by: [facility] [place] [facility] [address] [place] [address] labor atory direc tor: deonna malin III, M.D. Not Available [facility] ([facility]) [address] [place] [address], [address], 12/03/2012 11:34:09 11/29/19 13 12/03/2012 homoc ystei ne homocysteine , total 9 mcmol /L refer ence range : <=13 (fast ing) test perfo rmed by: [facility] [place] [facility] [address] [place] [address] labor atory direc tor: deonna malin III, M.D. Not Available [facility] ([facility]) [address] [place] [address], [address], 12/03/2012 11:34:10 11/29/19 13 12/03/2012 eryth ropoi etin erythropoiet in, S 11.9 mIU/m L refer ence range : 2.6 - 18.5 test perfo rmed by: [facility] [place] [address] [facility], [place] [address] labor atory dire tor: ajit akhtar, pH.D. Not Available [facility] ([facility]) [address] [place] [address], [address], 12/03/2012 11:34:12 04/08/19 14 04/08/2013 thyro id stimu latin g hormo ne (TSH) TSH 3.550 mU/L 0.270- 4.20 Not Available [facility]) [address] [place] [address], [address], 04/08/2013 14:05:45 11/28/19 13 11/14/2012 imagi ng/di agnos tic resul t No observ ation record ed. BARCODE Not Available 2012 18:12:49 Result Notes None recorded. Problems Name Problem SNOMED Code Status Onset Date Resolution Date Notes Provider Name and Address Organization Details Recorded Time Mixed hyperlipidem ia 915671785 Active Keshia Trungkentrell null, [facility] 4 09:46:13 Hypothyroidi sm 72396788 Active 05/04/13 No S/O per YP, managed by Dr. 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 Procedures Surgical History Date Name Laterality Status Provider Name and Address Organization Details Recorded Time 06/17/19 14 Medicare Wellness Visit completed Danita Miramontes MD [address] [place], [address], [facility] 06/16/2013 11:31:48 07/30/19 13 Treatment and Advice completed Ne Rowe Ms, PT [address] [place], [address], [facility] 07/29/2012 11:48:33 07/23/19 13 Treatment and Advice completed Ne Rowe Ms, PT [address] [place], [address], [facility] 07/22/2012 09:32:05 07/16/19 13 Treatment and Advice completed Ne Rowe Ms, PT [address] [place], [address], [facility] 07/15/2012 16:21:43 04/09/19 13 Medicare Wellness Visit completed Sunday Gupta LPN [facility] 04/09/2012 08:34:54 07/04/19 12 Smoking cessation counseling completed Latasha Baca CMA [facility] 07/04/2011 13:26:38 04/20/19 12 Medicare Wellness Visit completed Susan Kaminski MA [facility] 04/20/2011 10:09:43 Appendectomy completed Danita Miramontes MD [address] [place] [address], [address], [facility] 04/09/2012 09:24:07 [...] Name and Address Organization Details Recorded Time 589134 wasp venoms environme nt Not available Not available Not available 09/01/2013 29758 RxNorm Catherine De La Torre LPN [facility], [facility] 4 12:58:33 83397 Lipitor medicatio n Not available Not available Not available 04/20/2011 37516 5 RxNorm muscl e pain Danita Miramontes MD [address] [place] [address], [address], [facility] [...] Address Organization Details Last Updated DateTime 3 75632.7 50252 g 80 /min 27 kg/m2 162.56 cm 122 mm[Hg] 82 mm[Hg] Sharri Willis RN [facility] 3 09:58:26 Date Recorded Body weight Body height Body mass index (BMI) Heart rate Systolic blood pressure Diastolic blood pressure Provider Name and Address Organization Details Last Updated DateTime 4 42103.8 66700 g 162.56 cm 27.7 kg/m2 78 /min 112 mm[Hg] 64 mm[Hg] Sharri Willis RN [facility] 4 09:15:30 Date Recorded Body height Body mass index (BMI) Body weight Heart rate Systolic blood pressure Diastolic blood pressure Provider Name and Address Organization Details Last Updated DateTime 4 162.56 cm 28.5 kg/m2 18742.6 69102 g 80 /min 140 mm[Hg] 82 mm[Hg] Sharri Willis RN [facility] 4 11:02:53 Date Recorded Systolic blood pressure Diastolic blood pressure Provider Name and Address Organization Details Last Updated DateTime 06/16/2013 138 mm[Hg] 76 mm[Hg] Danita Miramontes MD [address] [place] [address], [address], [facility] 06/18/2013 15:54:44 Date Recorded Body weight Body mass index (BMI) Body height Systolic blood pressure Diastolic blood pressure Provider Name and Address Organization Details Last Updated DateTime 11/07/2013 03202.81 735 g 26.6 kg/m2 162.56 cm 130 mm[Hg] 70 mm[Hg] Darien Méndez [facility] 4 11:30:56 Social History Question Answer Notes LastModified by Organizat ion Details LastModified Time Tobacco Smoking Status Former Smoker age 20yo, quit 2011 Roque ruiz, [facility] 12/18/2011 10:10:46 Do You Have An Advance Directive? No Information not available 04/20/2011 What Is Your Level Of Alcohol Consumption? Occasional Information not available 06/16/2013 What Is Your Occupation? Retired From [employer] Information not available 04/20/2011 CSRP - Narcotics Yes 06/27/11-DC Lorazepam, Group 2 Information not available 06/27/2011 CSRP Contract Signed And Discussed Yes 05/29/11-DC [email or web address] Information not available 06/01/2011 Patient Has Health [...] virus, trivalent, preservative 2 completed Not Available [facility] 04/18/2019 02:25:37 pneumococcal polysaccharide PPV23 2 completed Not Available [facility] 04/18/2019 02:14:55 Influenza, split virus, quadrivalent, PF 3 completed Not Available [facility] 04/18/2019 02:18:55 influenza, unspecified formulation 1 completed Catherine De La Torre LPN [facility], [facility] 05/29/2011 11:18:54 Influenza, split virus, trivalent, preservative 4 completed Sharri Willis RN [facility] 01/19/2014 14:42:42 Past Encounters Encounter ID Performer Location Encounter Start Date Encounter Closed Date Diagnosis/Indication Diagnosis SNOMED-CT Code Diagnosis ICD10 Code Diagnosis Note [id number] CHRISTOPHER VILLASEÑOR, OFFICE [address] [place] [id number] 04/20/2011 09:46:07 04/20/2011 11:04:34 [id number] CHARLEEN Cain, OFFICE [address] [place] [id number] 05/29/2011 10:46:45 05/29/2011 11:54:58 [id number] CHARLEEN Cain, OFFICE [address] [place] [id number] 07/04/2011 13:17:36 07/04/2011 14:07:35 [id number] MD CHARLEEN Duarte Cain, OFFICE [address] [place] [id number] 08/29/2011 10:21:55 08/29/2011 11:25:58 [id number] , [facility], OFFICE [address] [place] [address] [place] [address] 10/26/2011 11:07:42 10/26/2011 12:44:20 [id number] Danita Miramontes MD , [facility], OFFICE [address] [place] [address] [place] [address] 12/18/2011 09:51:36 12/18/2011 11:29:44 [id number] Dainta Miramontes MD , [facility], OFFICE [address] [place] [address] [place] [address] 01/04/2012 09:27:35 01/04/2012 10:38:44 [id number] Danita Miramontes MD , [facility], OFFICE [address] [place] [address] [place] [address] 04/09/2012 08:31:38 04/09/2012 09:36:13 [id number] Jacinto Guy MD , [facility], OFFICE [address] [place] [address], [place] [address] 05/20/2012 10:13:19 05/20/2012 12:46:11 [id number] Michelle Lock MD Radiology , [address] [address] 05/20/2012 11:12:50 05/21/2012 14:09:19 [id number] Michelle Lock MD Radiology , [address] [address] 05/20/2012 12:04:47 05/21/2012 08:21:39 [id number] Pat Stiles , [facility], OFFICE [address] [place] [address] 07/05/2012 11:20:07 07/07/2012 12:16:33 [id number] Josef Stephen MD Radiology , [address] [address] 07/05/2012 11:35:20 07/09/2012 10:58:40 [id number] Josef Stephen MD Radiology , [address] [address] 07/05/2012 12:38:44 07/09/2012 10:58:18 [id number] Dmitri Harkins , [facility], OFFICE [address] [place] [address], [place] [address] 07/08/2012 09:00:35 07/08/2012 11:35:30 [id number] Ne Rowe Ms, PT Physical Therapy, [address] [address] 07/09/2012 14:26:36 07/10/2012 07:54:07 [id number] Ne Rowe Ms, PT Physical Therapy, [address] [address] 07/15/2012 08:59:25 07/15/2012 16:40:18 [id number] Ne Rowe Ms, PT Physical Therapy, [address] [address] 07/22/2012 08:52:49 07/22/2012 09:40:09 [id number] Ne Rowe Ms, PT Physical Therapy, [address] [address] 07/29/2012 10:55:18 07/29/2012 12:23:57 [id number] Danita Miramontes MD , [facility], OFFICE [address] [place] [id number] 09/10/2012 09:50:19 09/10/2012 11:16:43 [id number] [facility], OFFICE [address] [place] [address] 11/14/2012 11:39:53 11/14/2012 13:00:08 Postural dizziness 376834740 advised to hydrate well, go for labs Dizziness and giddiness 530630523 advised to hydrate well, go for labs [id number] Rachael Paul , [facility], OFFICE [address] [place] [id number] 12/12/2012 10:27:17 12/12/2012 11:24:40 Backache [id number] Benji Mcghee , [facility], OFFICE [address] [place] [id number] 12/26/2012 07:40:54 12/26/2012 15:07:49 Influenza vaccine needed 7572209306 [id number] [id number] [facility], OFFICE [address] [place] [address] 03/17/2013 09:41:22 03/17/2013 10:30:41 Hypothyroidism 90670415 current dose 88mcg since Oct 2012. recheck labs due to weight gain Hip pain 58126123 will s ee physiatris t Generalize d anxiety disorder 80622373 using benzo more recently due to stress but has been using prn in general. cont prn use and will monitor refill frequency. Hypnotic o r anxiolytic dependence, episodic 307170360 [id number] Danita Miramontes MD [facility], OFFICE [address] [place] [address] 04/08/2013 09:01:10 04/08/2013 09:54:03 Recurrent major depression 16122910 Hypothyroidism 97584198 see below Hip pain 97477775 still has not made appt w/ physiatris t. advised to do so [id number] Danita Miramontes MD [facility], OFFICE [address] [place] [address] 06/16/2013 10:33:51 06/16/2013 15:27:59 Adult health examination 068579597 see Risk Assessment and Lifestyle Change Counseling section above Counseling 231675116 Anxiety state 271845223 well controlled Bilateral cataracts 91903230 CLEARED FOR SURGERY [id number] [facility], OFFICE [address] [place] [address] 11/07/2013 11:09:50 11/11/2013 11:06:37 Generalized headache 169138565 Patient presents to Urgent Care with generalize [...] Hwang Member ID Guarantor Name 12/26/2012 1 [facility] - MEDICARE PREFERRED (MEDICARE REPLACEMENT PFFS) PHUONG Ruffin [id number] 1 [id number] Edwni Latham Laly 03/17/2013 1 [facility] - MEDICARE PREFERRED (MEDICARE REPLACEMENT PFFS) PHUONG Pineda Laly [id number] 1 [id number] Edwin Latham Laly 04/08/2013 1 [facility] - MEDICARE PREFERRED (MEDICARE REPLACEMENT PFFS) PHUONG Pineda Laly [id number] 1 [id number] Edwin Latham Laly 06/16/2013 1 [facility] - MEDICARE PREFERRED (MEDICARE REPLACEMENT PFFS) PHUONG Pineda Laly [id number] 1 [id number] Edwin Latham Laly 11/07/2013 1 [facility] - MEDICARE PREFERRED (MEDICARE REPLACEMENT PFFS) PHUONG Ruffin [id number] 1 [id number] Edwin Latham Laly Notes Date Note Type [...] Is gaining some weight Danita Miramontes MD [address] [place] [address], [address], [facility] 03/17/2013 15:01:52 [...] hips still bothering her Danita Miramontes MD [address] [place] [address], [address], [facility] 04/08/2013 11:57:19 06/16/2013 text/html will be having cataract surgery 07/01/13 Danita Miramontes MD [address] [place] [address], [address], [facility] 06/18/2013 15:54:46 [...] Elderly . Feels overwhelmed. Nile Chávez MD [address] [place] [address], [address], [facility] 11/07/2013 12:45:51 OBGyn Episode No OBEpisode recorded.
--- OUTSIDE RECORDS SUMMARY | 2024-07-15 18:06 | XMS_ITS | Continuity of Care Document ---
Author Organization [facility] Address [address] [place] [address] [place] [address] Assessment No assessment recorded. Plan of Treatment Reminders Order Date Submit Date Provider Last Modified By Organization Details Last Modified Time Details Appointments None recorded. Lab hemoglobin A1c, QN, blood 2024 025 [facility], [address] [place] [address], [id number], 14:08:24 urinalysis complete, reflex culture 2024 025 [facility], [address] [place] [address], [address], 5 14:08:24 vitamin D, 25-hydroxy , total, serum 2024 025 [facility], [address] [place] [address], [address], 5 14:07:08 vitamin B12 + folate, serum or blood 2024 025 [facility], [address] [place] [address], [address], 5 14:07:08 iron + TIBC + ferritin, serum 2024 025 [facility], [address] [place] [address], [address], 5 14:07:08 magnesium, serum or plasma 2024 025 [facility], [address] [place] [address], [address], 14:07:08 CMP, serum or plasma 2024 025 [facility], [address] [place] [address], [address], 12:45:15 CBC w/ auto diff 2024 025 [facility], [address] [place] [address], [address], 14:07:08 TSH + free T4, serum 2024 025 [facility], [address] [place] [address], [address], 14:07:08 Referral ophthalmol ogist referral 2024 025 [email or web address] Fay Pittman MD, [address] [place] [address], [address], 13:55:40 Procedures None recorded. Surgeries None recorded. Imaging None recorded. Medication Orders None recorded. Patient TargetsNo targets recorded. Patient InstructionsNo instructions recorded. 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 Blurring of visual image needs new eye doctor for routine exam Referring Physician: Radha Chatterjee, Internal Medicine, Encounter Date: 07/14/2024 Problems Name Problem SNOMED Code Status Onset Date Resolution Date Notes Provider Name and Address Organization Details Recorded Time Peptic ulcer with hemorrhag e 30449880 Active 2021 Not Available [facility] 3 16:17:23 Pulmonary embolism 14339596 Active 2021 Not Available [facility] 16:17:23 Deep venous thrombosi s 614668492 Active 2021 Not Available [facility] 3 16:17:23 Vitamin D deficienc y 24578525 Active 2021 Not Available [facility] 3 16:17:23 Mood disorder 56191766 Active 2021 Not Available [facility] 3 16:17:23 Hyperlipi demia 17529219 Active 2021 Not Available [facility] 3 16:17:23 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 68757180 Active 2021 Not Available [facility] 3 16:17:24 Hiatal hernia 41910589 Active 2021 Not Available [facility] 3 16:17:24 Esophagea l dysphagia 74940592 Active 2021 Not Available [facility] 3 16:17:23 Cervical radiculop athy 08953679 Active 2021 Not Available [facility] 3 16:17:23 Lumbar spondylol isthesis 567805958305 102 Active 2021 Not Available [facility] 3 16:17:23 Acquired spondylol isthesis of cervical vertebra 500731433610 106 Active 2021 Not Available [facility] 3 16:17:23 Hypothyro idism 28441083 Active 2021 Not Available [facility] 3 16:17:23 Squamous cell carcinoma 875234726 Active 2021 Not Available [facility] 3 16:17:23 Fatigue 01750870 Active 2021 Not Available [facility] 3 16:17:24 Blood coagulati on disorder 33430479 Active 2022 Not Available [facility] 3 16:17:23 Female hirsutism 49157373 Active 2022 Not Available [facility] 3 16:17:24 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 780651526534 106 Active 2022 Not Available [facility] 3 16:17:23 Presbyopi a 11679654 Active 2022 Not Available [facility] 3 16:17:23 Infection of tooth 558073881 Active 2022 Not Available [facility] 3 16:17:23 Depressiv e disorder 09685969 Active 2022 Not Available [facility] 3 16:17:23 Bee sting-ind uced anaphylax is 151615556 Active 2022 Not Available [facility] 3 16:17:23 Blood in urine 24080210 Active 2023 SUSY ALCANTARA [address] [place], [address], [facility] 4 14:03:37 Dysuria 00971929 Active 2023 SUSY ALCANTARA [address] [place], [address], [facility] 4 14:03:46 Bilateral shoulder joint pain 723710805585 17211 Active 2023 SUSY ALCANTARA [address] [place] [address], [address], [facility] 4 11:53:35 Iron deficienc y anemia 36929557 Active 2023 SUSY ALCANTARA [address] [place] [address], [address], [facility] 4 11:59:42 Actinic keratosis 916080676 Active 2023 SUSY ALCANTARA [address] [place], [address], [facility] 4 12:01:42 Bilateral hearing loss 25233732 Active 2023 SUSY ALCANTARA [address] [place], [address], [facility] 4 10:43:51 Pain of left shoulder joint 725524853963 86556 Active 2023 SUSY ALCANTARA [address] [place], [address], [facility] 4 08:56:38 Lumbar radiculop athy 692141520 Active 2023 SUSY ALCANTARA [address] [place], [address], [facility] 4 08:57:16 Increased frequency of urination 431390007 Active 2024 SUSY ALCANTARA [address] [place], [address], [facility] 5 14:06:26 Edema of lower extremity 299947358 Active 2024 SUSY ALCANTARA [address] [place] [address], [address], [facility] 5 14:10:57 Pain in left foot 972786041954 107 Active 2024 SUSY ALCANTARA [address] [place] [address], [address], [facility] 5 14:11:32 Blurring of visual image 168212563 Active 2024 SUSY ALCANTARA [address] [place] [address], [address], [facility] 5 14:14:36 Factor V Leiden mutation 145727687 Active 2024 SUSY ALCANTARA [address] [place] [address], [address], [facility] 5 14:18:52 Notes:Some problems listed i n Document: #[id number] could not be added to this patient's chart. Please review this document and add these problems to the patient's chart manually as needed. Problem Notes None recorded. Medical Equipment None Reported. Allergies Allergen ID Allergen Name Allergen Category Reaction Reaction Severity Criticality Documentation Date Start Date Code Code System Note Provider Name and Address Organization Details Recorded Time 5703 Product containin g 3-hydroxy -3-methyl glutaryl- coenzyme A reductase inhibitor (product) medicatio n Not available Not available Not available 03/01/2022 65110 009 SNOMED SUSY ALCANTARA [address] [place], [address], [facility] 2 10:32:11 6204 hornet venom environme nt Not available Not available Not available 03/01/2022 26028 UNK RADHA [place], [place] [address] [place], [address], [facility] 2 10:32:15 6205 honey bee venom medicatio n Not available Not available Not available 03/01/2022 65704 7 RxNorm RADHA ORRCHICA, [place] [address] [place], [address], [facility] 2 10:32:24 6206 Imitrex medicatio n Not available Not available Not available 03/01/2022 99828 3 RxNorm RADHA [place]ICA, [place] [address] [place], [address], [facility] 2 10:32:30 7249 escitalop nanette Not available Not available Not available Not available 12/05/2022 00112 8 RxNorm Tali ruiz [facility] 3 10:21:52 7250 fluoxetin e [...] Address Organization Details Last Updated DateTime 5 37923.1 1 g 95 /min 95 % 95 % 112 mm[Hg] 82 mm[Hg] Bertha Goldberg [facility] 5 13:48:48 Social History Question Answer Notes LastModified by Organizat ion Details LastModified Time Tobacco Smoking Status Former Smoker SUSY ALCANTARA [address] [place] [address], [address], [facility] 03/01/2022 10:33:35 What Was The Date Of [...] influenza, unspecified formulation 2 completed SUSY ALCANTARA [address] [place] [address], [address], [facility] 03/01/2022 10:33:24 influenza, unspecified formulation 3 [facility] 02/17/2023 08:24:36 influenza, unspecified formulation 4 completed Bertha ruiz [place] [facility] 01/03/2024 09:57:51 Past Encounters Encounter ID Performer Location Encounter Start Date Encounter Closed Date Diagnosis/Indication Diagnosis SNOMED-CT Code Diagnosis ICD10 Code Diagnosis Note [id number] SUSY ALCANTARA [facility] [address],[place] [facility] [facility] [address] 07/14/2024 13:36:55 07/15/2024 13:55:39 Fatigue 55085646 R53.83 recommende d additional lab workcould be related to her depression which was exacerbate d due to her dying Increased frequency of urination 633343954 R35.0 will set up with A1c and urine check Vitamin D deficiency 347 79770 E55.9 needs recheck of her levels Edema of l ower extremity 390710441 R60.0 continue to elevate her feet Pain in left foot 449874 6233 18073 M79.672 start of topical Blurring o f visual image 256850441 H53.8 will set up with new eye doctor Squamous c ell carcinoma 564393293 C80.1 has fu with derm Chronic de ep venous thrombosis of lower extremity 3890728474 66003 I82.503 stable Factor V L eiden mutation 248088247 D68.51 Health Concerns Section Related Observation LastModified by Organization Detai ls LastModified Time None Recorded Concern Status LastModified by Organization Details LastModified Time None Recorded Payers Encounter Date Sequence Insurance Name Policy Number Policy Hwang Covered Member ID Hwang Member ID Guarantor Name 07/14/2024 1 [facility] - MEDICARE PREFERRED (MEDICARE REPLACEMENT HMO) PHUONG Ruffin [id number] Edwin Ruffin Notes Date Note Type Note Provider Name [...] with patient after lab work SUSY ALCANTARA [address] [place] [address], [place], [address], [facility] 07/14/2024 14:19:38 OBGyn Episode No OBEpisode recorded.
--- OUTSIDE RECORDS SUMMARY | 2024-07-15 18:06 | XMS_ITS | Data Portability ---
Author Organization [facility], Home Service Address [address] [place] [address] Assessment Encounter Date Assessment Date Assessment LastModified [...] Lab hemoglobin A1c, QN, blood 2024 025 [facility], [address] [place] [address], [place], [address], 14:08:24 urinalysis complete, reflex culture 2024 025 [facility], [address] [place] [address], [address], 5 14:08:24 vitamin D, 25-hydroxy , total, serum 2024 025 [facility], [address] [place] [address], [address], 5 14:07:08 vitamin B12 + folate, serum or blood 2024 025 [facility], [address] [place] [address], [address], 5 14:07:08 iron + TIBC + ferritin, serum 2024 025 [facility], [address] [place] [address], [address], 5 14:07:08 magnesium, serum or plasma 2024 025 [facility], [address] [place] [address], [address], 5 14:07:08 CMP, serum or plasma 2024 025 [facility], [address] [place] [address], [address], 5 12:45:15 CBC w/ auto diff 2024 025 [facility], [address] [place] [address], [address], 5 14:07:08 TSH + free T4, serum 2024 025 [facility], [address] [place] [address], [address], 5 14:07:08 ESR (erythrocy te sedimentat ion rate), blood 2023 024 [facility], [address] [place] [address], [address], 4 12:28:02 C-reactive protein, quantitati ve, serum or plasma 2023 024 [facility], [address] [place] [address], [address], 4 11:57:31 uric acid, serum or plasma 2023 024 [facility], [address] [place] [address], [address], 4 11:57:31 vitamin D, 25-hydroxy , total, serum 2023 024 [facility], [address] [place] [address], [address], 4 12:11:05 vitamin B12 + folate, serum or blood 2023 024 [facility], [address] [place] [address], [address], 4 12:11:05 iron + TIBC + ferritin, serum 2023 024 [facility], [address] [place] [address], [address], 4 12:02:48 CBC w/ auto diff 2023 024 [facility], [address] [place] [address], [address], 4 12:02:48 urinalysis complete, reflex culture 2023 024 [facility] (Outpatient), [address] [place], [address], 4 15:11:37 CBC w/ auto diff 2023 024 [facility] (Outpatient), [address] [place], [address], 4 14:06:51 CMP, serum or plasma 2023 024 [facility] (Outpatient), [address] [place] [address], [address], 4 15:12:54 iron + TIBC + ferritin, serum 2023 024 [facility] (Outpatient), [address] [place], [address], 4 15:41:28 PT/INR 2023 024 [facility] (Outpatient), [address] [place] [address], [address], 4 14:06:50 lh + FSH, serum 2022 023 [facility], [address] [place] [address], [address], 3 15:16:15 prolactin, serum 2022 023 [facility], [address] [place] [address], [address], 3 12:15:25 testostero ne, free + total, serum 2022 023 [facility], [address] [place] [address], [address], 3 19:29:17 dhea-sulfa te, serum 2022 023 [facility], [address] [place] [address], [address], 3 08:26:25 PT/INR 2022 023 [facility], [address] [place] [address], [address], 3 12:15:26 PT/PTT, plasma 2022 023 [facility], [address] [place] [address], [address], 3 12:15:25 plasminoge n activator inhibitor- 1 (ronald-1), plasma 2022 023 [facility], [address] [place] [address], [address], 3 12:15:26 CBC w/ auto diff 2022 023 [facility], [address] [place] [address], [address], 3 14:49:21 factor V mutation, blood or tissue 2022 023 [facility], [address] [place] [address], [address], 3 12:53:06 protein C + protein S, functional panel, plasma 2022 023 [facility], [address] [place] [address], [address], 3 12:15:26 CBC w/ auto diff 2021 022 [facility], [address] [place] [address], [address], 2 05:21:06 iron + TIBC + ferritin, serum 2021 022 [facility], [address] [place] [address], [address], 2 11:35:19 TSH + free T4, serum 2021 022 [facility], [address] [place] [address], [place], [address], 06:12:18 vitamin D, 25-hydroxy , total, serum 2021 022 [facility], [address] [place] [address], [place], [address], 2 11:35:19 vitamin B12 + folate, serum or blood 2021 022 [facility], [address] [place] [address], [place], [address], 2 05:53:24 Referral ophthalmol ogist referral 2024 025 [email or web address] Fay Pittman MD, [address] [place], [address], 5 13:55:40 dermatolog ist referral 2023 024 [facility], [address] , [place], [address], 4 09:24:44 optometris t referral 2022 023 [facility], [address] [place], [address], 3 13:34:07 endocrine surgery referral 2022 023 [email or web address] 10 Dioni Ojeda MD, [address] [place], [address], 3 10:33:04 dermatolog ist referral 2021 022 [facility], [address], S[place] [address] [place] [address], [address], 2 08:49:57 Procedures None recorded. Surgeries None recorded. Imaging XR, shoulder, 2 or more view 2023 024 [email or web address] Not available 4 09:59:01 XR, cervical spine, 2 or 3 view 2023 024 [facility] Not available 4 11:46:05 US, duplex, venous, lower extremity - hx of DVT LEs, needs routine check 2022 023 [email or web address] Not available 3 09:02:36 Medication Orders levothyrox ine 75 mcg tablet 2023 024 [facility]/Pharmacy #[id number], [address] [place], [address], 4 11:52:32 Bactrim DS 800 mg-160 mg tablet 2023 024 [email or web address] [facility]/Pharmacy #[id number], [address] [place], [address], 4 11:22:57 Patient TargetsNo targets recorded. Patient InstructionsNo instructions recorded. 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 Referral for Pre sbyopia needs new eye physician for routine eye exam Referring Physician: Radha Chatterjee Internal Medicine, Encounter Date: 04/06/2022 Music Executive Referral for A ctinic keratosis possible AK on the for head, non-healing, bleeding lesion, pink in color, irregular borders Referring Physician: Radha Chatterjee Internal Medicine, Encounter Date: 08/07/2023 Product Manager Referral for Blurring of visual image needs new eye doctor for routine exam Referring Physician: Radha Chatterjee Internal Medicine, Encounter Date: 07/14/2024 Results Created Date Observation Date Name Description Value Unit Range Abnormal Flag Note LastModifiedBy Organization Detail LastModifiedTime 02/20/20 22 02/16/2022 [place], modif ied brigette sultana michaelshannan ow study No observ ation record ed. [email or web address] [facility] (Scheduling Dept) [address] [place] [address], [address], 02/19/2022 11:07:34 04/20/19 23 04/20/2022 US, duple x, venou s, lower extre mity No observ ation record ed. [facility] [address] [facility] [address], [place], [address], 04/23/2022 15:02:50 05/17/19 23 05/17/2022 CT, face, w/ contr ast No observ ation record ed. [facility] [address] [place] [address], [address], 05/17/2022 08:48:51 07/30/19 24 07/30/2023 CT, abdom en + pelvi s, w/o contr ast No observ ation record ed. [facility] (Emergency Room) [address] [place] [address], [address], 08/07/2023 12:14:49 08/08/19 24 08/07/2023 XR, shoul vivi, 2 or more view No observ ation record ed. [email or web address] [address], [address], 08/09/2023 12:26:41 08/08/19 24 08/07/2023 XR, cervi елена spine , 2 or 3 view No observ ation record ed. [address], [address], 08/09/2023 08:49:53 08/08/19 24 08/07/2023 XR, shoul vivi, 2 or more view No observ ation record ed. [email or web address] [address], [address], 08/09/2023 08:49:53 04/23/1904/22/2024 XR, uli vivi, 2 or more view No observ ation record ed. [email or web address] [address], [address], 04/24/2024 09:07:25 Result Notes None recorded. Problems Name Problem SNOMED Code Status Onset Date Resolution Date Notes Provider Name and Address Organization Details Recorded Time Peptic ulcer with hemorrhag e 67282643 Active 2021 Not Available [facility] 3 16:17:23 Pulmonary embolism 44144538 Active 2021 Not Available [facility] 3 16:17:23 Deep venous thrombosi s 711666273 Active 2021 Not Available [facility] 3 16:17:23 Vitamin D deficienc y 31470462 Active 2021 Not Available [facility] 3 16:17:23 Mood disorder 42040882 Active 2021 Not Available [facility] 3 16:17:23 Hyperlipi demia 79696438 Active 2021 Not Available [facility] 3 16:17:23 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 46116180 Active 2021 Not Available [facility] 3 16:17:24 Hiatal hernia 62384706 Active 2021 Not Available [facility] 3 16:17:24 Esophagea l dysphagia 44314250 Active 2021 Not Available [facility] 3 16:17:23 Cervical radiculop athy 53691372 Active 2021 Not Available [facility] 3 16:17:23 Lumbar spondylol isthesis 470135458670 102 Active 2021 Not Available [facility] 3 16:17:23 Acquired spondylol isthesis of cervical vertebra 807857175823 106 Active 2021 Not Available [facility] 3 16:17:23 Hypothyro idism 31668411 Active 2021 Not Available [facility] 3 16:17:23 Squamous cell carcinoma 185048193 Active 2021 Not Available [facility] 3 16:17:23 Fatigue 75936685 Active 2021 Not Available [facility] 3 16:17:24 Blood coagulati on disorder 22359875 Active 2022 Not Available [facility] 3 16:17:23 Female hirsutism 79934465 Active 2022 Not Available [facility] 3 16:17:24 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 167251335349 106 Active 2022 Not Available [facility] 3 16:17:23 Presbyopi a 01439514 Active 2022 Not Available [facility] 3 16:17:23 Infection of tooth 605072965 Active 2022 Not Available [facility] 3 16:17:23 Depressiv e disorder 85635652 Active 2022 Not Available [facility] 3 16:17:23 Bee sting-ind uced anaphylax is 487123350 Active 2022 Not Available [facility] 3 16:17:23 Blood in urine 67249965 Active [address] [place] [address], [address], [facility] 4 14:03:37 Dysuria 49463793 Active 2023 SUSY ALCANTARA [address] [place] [address], [address], [facility] 4 14:03:46 Bilateral shoulder joint pain 901132200682 92594 Active 2023 SUSY ALCANTARA [address] [place], [address], [facility] 4 11:53:35 Iron deficienc y anemia 30576920 Active 2023 SUSY ALCANTARA [address] [place], [address], [facility] 4 11:59:42 Actinic keratosis 351710058 Active 2023 SUSY ALCANTARA [address] [place], [address], [facility] 4 12:01:42 Bilateral hearing loss 41272551 Active 2023 SUSY ALCANTARA [address] [place], [address], [facility] 4 10:43:51 Pain of left shoulder joint 358512970045 64132 Active 2023 SUSY ALCANTARA [address] [place] [address], [address], [facility] 4 08:56:38 Lumbar radiculop athy 105640233 Active 2023 SUSY ALCANTARA [address] [place], [address], [facility] 4 08:57:16 Increased frequency of urination 248749073 Active 2024 SUSY ALCANTARA [address] [place] [address], [address], [facility] 5 14:06:26 Edema of lower extremity 001543391 Active 2024 SUSY ALCANTARA [address] [place], [address], [facility] 5 14:10:57 Pain in left foot 589940352026 107 Active 2024 SUSY ALCANTARA [address] [place], [address], [facility] 5 14:11:32 Blurring of visual image 589885524 Active 2024 SUSY ALCANTARA [address] [place], [address], [place] [facility] 14:14:36 Factor V Leiden mutation 858147691 Active 2024 SUSY ALCANTARA [address] [place], [address], [place] [facility] 14:18:52 Notes:Some problems listed i n Document: #[id number] could not be added to this patient's chart. Please review this document and add these problems to the patient's chart manually as needed. Problem Notes None recorded. Procedures Surgical History None recorded. Imaging Results Imaging Date Name Status LastModified by Mendy nolasco Details LastModified Time 02/16/2022 [place], modified barium swallow study completed [email or web address] (Scheduling Dept) [address] [place] [address], [address], 02/19/2022 11:07:34 04/20/2022 US, duplex, venous, lower extremity completed [facility] [address] [facility] [address], [place], [address], 04/23/2022 15:02:50 05/17/2022 CT, face, w/ contrast completed [facility] (Emergency Room) [address] [place] [address], [address], 05/17/2022 08:48:51 07/30/2023 CT, abdomen + pelvis, w/o contrast completed [facility] (Emergency Room) [address] [place] [address], [address], 08/07/2023 12:14:49 08/07/2023 XR, shoulder, 2 or more view completed [email or web address] [address], [address], 08/09/2023 12:26:41 08/07/2023 XR, cervical spine, 2 or 3 view completed [address], [address], 08/09/2023 08:49:53 08/07/2023 XR, shoulder, 2 or more view completed [email or web address] [address], [address], 08/09/2023 08:49:53 04/22/2024 XR, shoulder, 2 or more view completed [email or web address] [address], [address], 04/24/2024 09:07:25 Procedure Notes None recorded. Medical Equipment None Reported. Allergies Allergen ID Allergen Name Allergen Category Reaction Reaction Severity Criticality Documentation Date Start Date Code Code System Note Provider Name and Address Organization Details Recorded Time 7249 Product containin g 3-hydroxy -3-methyl glutaryl- coenzyme A reductase inhibitor (product) medicatio n Not available Not available Not available 03/01/2022 42122 009 SNOMED SUSY ALCANTARA [address] [place], [place], [address], [facility] 2 10:32:11 6204 hornet venom environme nt Not available Not available Not available 03/01/2022 64437 UNK SUSY ALCANTARA [address] [place] [address], 7, [facility] 2 10:32:15 6205 honey bee venom medicatio n Not available Not available Not available 03/01/2022 95639 7 RxNorm SUSY ALCANTARA [address], [place], 7, [facility] 2 10:32:24 6206 Imitrex medicatio n Not available Not available Not available 03/01/2022 84064 3 RxNorm SUSY ALCANTARA [address], [place], 7, [facility] 2 10:32:30 7249 escitalop nanette Not available Not available Not available Not available 12/05/2022 35170 8 [facility] 3 10:21:52 7250 fluoxetin e medicatio n Not available Not available Not available 12/05/2022 4493 RxNorm Tali ruiz [facility] 3 10:22:07 Medications Name Sig [...] Address Organization Details Last Updated DateTime 2 98379.8 g 60 /min 97 % 97 % 136 mm[Hg] 80 mm[Hg] SUSY ALCANTARA [address] [place], [address] [place], [place] - [facility] 2 10:35:33 Date Recorded Body weight Heart rate Oxygen saturation Oxygen saturation in Arterial blood by Pulse oximetry Systolic blood pressure Diastolic blood pressure Provider Name and Address Organization Details Last Updated DateTime 3 37038.0 5 g 64 /min 98 % 98 % 128 mm[Hg] 60 mm[Hg] SUSY ALCANTARA [address] [place], [address] [facility] 3 11:38:45 Date Recorded Body weight Heart rate Oxygen saturation Oxygen saturation in Arterial blood by Pulse oximetry Systolic blood pressure Diastolic blood pressure Provider Name and Address Organization Details Last Updated DateTime 4 46626.5 4 g 85 /min 98 % 98 % 114 mm[Hg] 78 mm[Hg] [facility] 4 11:30:19 Date Recorded Body weight Heart rate Oxygen saturation Oxygen saturation in Arterial blood by Pulse oximetry Systolic blood pressure Diastolic blood pressure Provider Name and Address Organization Details Last Updated DateTime 5 16873.1 1 g 95 /min 95 % 95 % 112 mm[Hg] 82 mm[Hg] [facility] 5 13:48:48 Social History Question Answer Notes LastModified by Organizat ion Details LastModified Time Tobacco Smoking Status Former Smoker SUSY ALCANTARA [address] [place], [address], [facility] 03/01/2022 10:33:35 What Was The Date Of [...] unspecified formulation 2 completed SUSY ALCANTARA [address] [place], [address], [facility] 03/01/2022 10:33:24 influenza, unspecified formulation [address] [facility] 02/17/2023 08:24:36 influenza, unspecified formulation [address] [facility] 01/03/2024 09:57:51 Past Encounters Encounter ID Performer Location Encounter Start Date Encounter Closed Date Diagnosis/Indication Diagnosis SNOMED-CT Code Diagnosis ICD10 Code Diagnosis Note [id number] SUSY ALCANTARA [facility] [address] [facility],[place] [address] 03/01/2022 10:25:46 03/01/2022 11:38:44 Hiatal hernia 77822802 K44.9 large hernia; hiatal hernia with large parts of the fundus of the hernia Esophageal dysphagia 408 61645 R13.19 has f/u on Saturday with Cervical radiculopathy 19651019 M54.12 not significan twill monitor her Acquired spondylolisthesis of cervical vertebra 0990449115 76772 M43.12 noted incidental ly on her barium swallow Hypothyroidism 92792260 E03.8 needs recheck Pulmonary embolism 36640 003 I26.99 currently on warfarindo es have h/x of GI bleeds INR levels Squamous c ell carcinoma 094943311 C80.1 will f/u with dermatolog y Peptic ulc er with hemorrhage 36187332 K25.4 hx of peptic ulcer Mood disorder 34131208 F 30.10 stable Fatigue 96130841 R53.83 will recheck levels [id number] SUSY ALCANTARA [facility] Medicine [address] [facility],[place] [address] 04/06/2022 11:29:14 04/06/2022 13:33:19 Blood coagulation disorder 92117925 D68.59 will do work up > could not see the genetics doctor as they stopped taking new patients Female hirsutism 6465063 9 L68.0 will f/u with lab work to determine if it is a hormonal imbalance Chronic de ep venous thrombosis of lower extremity 9078638287 20712 I82.503 will f/u with the DVT to monitor her levels Hypothyroidism 32900068 E03.8 will set up with new endocrinol ogist Mood disorder 78815516 F 30.10 adjusted taper dose, directions in the chart (under medication s)given list of meds with directions Presbyopia 33802958 H52. 4 will set up with new optometris t for routine eye exam and monitoring [id number] SUSY ALCANTARA [facility] [address] [facility],[place] [address] 07/27/2023 14:02:40 07/29/2023 08:15:08 Blood in urine 52110282 R31.0 lab work will be completed on Saturday Dysuria 44525513 R30.0 start short course through the weekend, f/u planned with lab work on Saturday [id number] SUSY ALCANTARA [facility] [address] [facility],[place] [address] 08/07/2023 11:10:52 08/07/2023 13:30:56 Depression screening 428140657 Z13.31 stable Hypothyroidism 00719368 E03.8 seeing Nicasionee ds refill Bilateral shoulder joint pain 0431630616 1756856 M25.511 agreed to lab work and XR Iron defic iency anemia 04809963 D50.9 recheck levels, suggested stomach ease version due to the constipati on Actinic keratosis 169864 007 L57.0 agreed to derm f/u Cervical radiculopathy 16314515 M54.12 not significan twill monitor her Fatigue 64353737 R53.83 stable [id number] SUSY ALCANTARA [facility] Medicine [address] [facility],[place] [address] 07/14/2024 13:36:55 07/15/2024 13:55:39 Fatigue 81942755 R53.83 recommende d additional lab workcould be related to her depression which was exacerbate d due to her dying Increased frequency of urination 444596610 R35.0 will set up with A1c and urine check Vitamin D deficiency 347 95217 E55.9 needs recheck of her levels Edema of l ower extremity 668259001 R60.0 continue to elevate her feet Pain in left foot 533448 8349 39787 M79.672 start of topical Blurring o f visual image 895678250 H53.8 will set up with new eye doctor Squamous c ell carcinoma 211362231 C80.1 has fu with derm Chronic de ep venous thrombosis of lower extremity 6861370399 63967 I82.503 stable Factor V L eiden mutation 348639716 D68.51 Health Concerns Section Related Observation LastModified by Organization Detai ls LastModified Time None Recorded Concern Status LastModified by Organization Details LastModified Time None Recorded Advance Directives Directive None Recorded Payers Encounter Date Sequence Insurance Name Policy Number Policy Hwang Covered Member ID Hwang Member ID Guarantor Name 03/01/2022 1 [facility] - MEDICARE PREFERRED (MEDICARE REPLACEMENT HMO) PHUONG Pineda Laly [id number] 1 Edwin Noa Ruffin 04/06/2022 1 [facility] - MEDICARE PREFERRED (MEDICARE REPLACEMENT HMO) SARAHANAHI Ruffin [id number] 1 Edwin Ruffin 07/27/2023 1 [facility] - MEDICARE PREFERRED (MEDICARE REPLACEMENT HMO) SARAHANAHI Ruffin [id number] 1 Edwin Ruffin 08/07/2023 1 [facility] PLAN - MEDICARE PREFERRED (MEDICARE REPLACEMENT HMO) PHUONG Edwin Ruffin [id number] 1 Edwin Latham Laly 07/14/2024 1 [facility] PL[facility] - MEDICARE PREFERRED (MEDICARE REPLACEMENT HMO) PHUONG Edwin Ruffin [id number] 1 Edwin Noa Laly Notes Date Note [...] vitamins in the morning SUSY ALCANTARA [address] [place], [address], [facility] 03/01/2022 11:35:24 04/06/19 23 text/htm l 1 mo f/u Dr. Booth for her dental workDr. Chamorro for teeth extraction > the patient reports that she needs pre-opwas on clindamycin prior to procedureno serious reaction, did well on itjust an FYI to be aware for PCP Blood coagulation: will do work up for patient since genetics doctor (through [facility]) is no longer taking patientsgiven to patient [...] eye physicianset up with Dr. Rosa in [place], [place] SUSY ALCANTARA [address] [place], [address], [facility] 04/06/2022 12:48:43 07/27/19 24 text/htm [...] fu with patient on Saturday SUSY [address] [place], [id number], [facility] 07/27/2023 14:15:07 08/07/19 24 text/htm [...] patient after work up S[facility] [address] [place], [id number], [facility] 08/07/2023 12:16:09 07/15/19 25 text/htm [...] patient after lab work [facility] [address] [place], [id number], [facility] 07/14/2024 14:19:38 OBGyn Episode No OBEpisode recorded.
[2024-07-15 18:17] LABS: Appearance Urine Clear; Color Urine Yellow; Glucose Urine UA Negative (Negative); Leukocyte Esterase Urine Trace (Negative); Nitrite Urine Negative (Negative); PH 5.5 (5.0-9.0); UMIC TRIGGER UACC YES; Urine Blood Negative (Negative); Urine Ketones Negative (Negative); Urine Protein Negative (Neg-Trace)
[2024-07-15 18:24] LABS: Bacteria Urine None Seen (None Seen); Hyaline Casts Urine 0-2 /LPF (0-2); RBC Urine 0-2 /HPF (0-2); Squamous Epithelial Cell Urine 0-2 /HPF (0-2); WBC Urine 0-5 /HPF (0-5)
== END 2024-07-15 15:42 | disposition home or self-care (01) ==
LOC: HO.MANLNP 15:41
PROVIDERS: Visit Provider Physician Assistant
DX: R35.0 Frequency of micturition (principal); R53.83 Other fatigue
CPT/HCPCS: 81001